=== PATIENT | female | born 1935 | race Caucasian/White ===

== ENCOUNTER → 2019-12-08 14:13 | Outpatient (REF) | payer MEDICARE, SELFPAY | LOC: ANHLAB 14:13 | PROVIDERS: Visit Provider Nurse Practitioner | DX: C44.319 Basal cell carcinoma of skin of other parts of face (principal) | CPT/HCPCS: 88305 ==

== ENCOUNTER → 2020-02-09 09:27 | Outpatient (REF) | payer MEDICARE, SELFPAY | LOC: ANHLAB 09:27 | PROVIDERS: Visit Provider Nurse Practitioner | DX: C44.319 Basal cell carcinoma of skin of other parts of face (principal) | CPT/HCPCS: 88305; 88331 ==

== ENCOUNTER 2020-04-07 07:40 | Outpatient (CLI) | payer MEDICARE, SELFPAY ==
[2020-04-07 07:52] LABS: Basophils Absolute Auto 0.07 K/mm3 (0.00-0.10); Eosinophils Percent Auto 1.4 % (1.0-6.0); Hematocrit 41.4 % (35.0-42.0); Hemoglobin 13.9 g/dL (11.7-13.8); Immature Granulocyte Absolute 0.02 K/mm3 (0.00-0.00); Immature Granulocyte Percent A 0.3 % (0.0-0.0); Lymphocytes Absolute Auto 2.75 K/mm3 (1.10-4.50); Lymphocytes Percent Auto 38.8 % (18.0-42.0); Mean Corpuscular HGB Conc 33.6 g/dL (32.0-36.0); Mean Corpuscular Hemoglobin 29.6 pg (27.0-31.0); Mean Corpuscular Volume 88.1 fL (78.0-102.0); Mean Platelet Volume 10.5 fl (9.2-11.8); Monocytes Absolute Auto 0.71 K/mm3 (0.10-0.90); Neutrophils Absolute Auto 3.4 K/mm3 (1.7-7.2); Neutrophils Percent Auto 48.5 % (50.0-70.0); Platelet Count Result 240 K/mm3 (150-420); Red Cell Distribution Width 12.7 % (11.6-14.4); White Blood Count 7.1 K/mm3 (4.8-10.8)
[2020-04-07 08:23] LABS: Alanine Aminotransferase 17 U/L (14-59); Albumin Level 4.1 g/dL (3.4-5.0); Alkaline Phosphatase 73 U/L (46-116); Anion Gap 11.8 mmol/L (7-16); Aspartate Amino Transferase 19 U/L (15-37); Bilirubin,Total 0.6 mg/dL (0.00-1.00); Blood Urea Nitrogen 18 mg/dL (7-18); Calcium 9.6 mg/dL (8.5-10.1); Carbon Dioxide 29 mmol/L (21-32); Chloride 104 mmol/L (98-108); Cholesterol 204 mg/dL (0-200); Estimated Glomerular Filt Rate 40; Glucose 106 mg/dL (70-99); HDL Direct 71 mg/dL (40-60); LDL Cholesterol Calculated 106 mg/dL (<130); Osmolality Calculated 293 mOsm/kg (285-295); Potassium 3.8 mmol/L (3.5-5.1); Sodium 141 mmol/L (136-145); Total Protein 7.3 g/dL (6.4-8.2); Triglycerides 136 mg/dL (0-150)
== END 2020-04-07 07:41 | disposition home or self-care (01) ==
PROVIDERS: PCP Nurse Practitioner Family; Visit Provider Nurse Practitioner Family
DX: E78.5 Hyperlipidemia, unspecified (principal); I10 Essential (primary) hypertension
CPT/HCPCS: 36415; 80053; 80061; 85025

== ENCOUNTER 2023-04-10 13:03 | Outpatient (NON) | payer MEDICARE, SELFPAY | END 2023-04-10 13:04 | disposition home or self-care (01) | PROVIDERS: PCP Nurse Practitioner Family; Visit Provider Nurse Practitioner | DX: C44.319 Basal cell carcinoma of skin of other parts of face (principal) | CPT/HCPCS: 88305 ==

== ENCOUNTER 2023-06-05 12:13 | Outpatient (CLI) | payer MEDICARE, SELFPAY ==
--- NOTE | ~2023-06-05 | XR_ITS ---
EXAMINATION: XR chest 2V Exam Date/Time: 06/05/2023 12:45 CDT HISTORY: FATIGUE,HTN,UPPER ABD DISCOMFORT Comparison: 10/02/2017. RESULT: Lines, tubes, and devices: Intact sternotomy wires. Mediastinal surgical clips. Likely coronary sten t. Lungs and pleura: Emphysematous/senescent change. Right hemidiaphragm eventration. Cardiomediastinal silhouette: Stable. Other: No acute osseous or upper abdominal finding. Scoliosis. IMPRESSION: No acute cardiopulmonary process. Reviewed, dictated and finalized at location K.
[2023-06-05 12:33] LABS: Basophils Absolute Auto 0.06 K/mm3 (0.00-0.10); Basophils Percent Auto 0.6 % (0.0-1.0); Eosinophils Absolute Auto 0.03 K/mm3 (0.02-0.50); Eosinophils Percent Auto 0.3 % (1.0-6.0); Hematocrit 40.7 % (35.0-42.0); Hemoglobin 14.1 g/dL (11.7-13.8); Immature Granulocyte Absolute 0.05 K/mm3 (0.00-0.00); Immature Granulocyte Percent A 0.5 % (0.0-0.0); Lymphocytes Absolute Auto 2.36 K/mm3 (1.10-4.50); Lymphocytes Percent Auto 25.1 % (18.0-42.0); Mean Corpuscular HGB Conc 34.6 g/dL (32.0-36.0); Mean Corpuscular Hemoglobin 29.4 pg (27.0-31.0); Mean Corpuscular Volume 84.8 fL (78.0-102.0); Mean Platelet Volume 9.8 fl (9.2-11.8); Monocytes Absolute Auto 0.82 K/mm3 (0.10-0.90); Monocytes Percent Auto 8.7 % (2.0-11.0); Neutrophils Absolute Auto 6.1 K/mm3 (1.7-7.2); Neutrophils Percent Auto 64.8 % (50.0-70.0); Platelet Count Result 366 K/mm3 (150-420); Red Cell Distribution Width 12.3 % (11.6-14.4); White Blood Count 9.4 K/mm3 (4.8-10.8)
--- NOTE | 2023-06-05 12:35 | ECG_ITS ---
Measurements Intervals [place] Rate: 67 P: 71 [place]: 156 QRS: -39 QRSD: 107 T: 44 QT: 433 QTc: 458 Interpretive Statements SINUS RHYTHM WITH SINUS ARRHYTHMIA LEFT AXIS DEVIATION ANTEROSEPTAL INFARCT, AGE INDETERMINATE BASELINE ARTIFACT- II, III, AVF ABNORMAL ECG NO PREVIOUS ECG AVAILABLE FOR COMPARISON Electronically Signed On 06-05-2023 14:10:27 CDT by Kev Dey D.O.
[2023-06-05 13:11] LABS: Alanine Aminotransferase 7 U/L (14-59); Albumin Level 3.9 g/dL (3.4-5.0); Alkaline Phosphatase 76 U/L (46-116); Anion Gap 12 mmol/L (8-16); Aspartate Amino Transferase 15 U/L (15-37); Bilirubin,Total 0.8 mg/dL (0.00-1.00); Blood Urea Nitrogen 28 mg/dL (7-18); Calcium 9.8 mg/dL (8.5-10.1); Carbon Dioxide 26 mmol/L (21-32); Chloride 99 mmol/L (98-108); Cholesterol 192 mg/dL (0-200); Estimated Glomerular Filt Rate 33; Glucose 124 mg/dL (70-99); HDL Direct 65 mg/dL (40-60); LDL Cholesterol Calculated 106 mg/dL (<130); Osmolality Calculated 290 mOsm/kg (285-295); Potassium 3.4 mmol/L (3.5-5.1); Sodium 137 mmol/L (136-145); Total Protein 7.3 g/dL (6.4-8.2); Triglycerides 105 mg/dL (0-150)
[2023-06-05 13:11] LABS: Troponin I 5.2 ng/L (0.00-60.4)
[2023-06-05 13:12] LABS: Thyroid Stimulating Hormone Reflex 3.24 u/IU/mL (0.36-3.74)
[2023-06-05 15:55] LABS: Hemoglobin A1C 5.9 % (<5.7)
[2023-06-07 21:00] LABS: H pylori, Urea Breath DETECTED (NOT DETECTED)
[2023-06-09 13:24] LABS: Vitamin D 25 Hydroxy 33 ng/mL (30-100)
== END 2023-06-05 12:14 | disposition home or self-care (01) ==
PROVIDERS: PCP Nurse Practitioner Family; Visit Provider Nurse Practitioner Family
DX: R94.31 Abnormal electrocardiogram [ECG] [EKG] (principal); I49.8 Other specified cardiac arrhythmias; I44.4 Left anterior fascicular block; R73.09 Other abnormal glucose; E66.9 Obesity, unspecified; I10 Essential (primary) hypertension; Z79.899 Other long term (current) drug therapy
CPT/HCPCS: 36415; 71046; 80053; 80061; 82306; 83013; 83036; 84443; 84484; 85025; 93005

== ENCOUNTER 2023-06-06 09:12 | Outpatient (CLI) | payer MEDICARE, SELFPAY ==
[2023-06-06 09:27] LABS: Appearance Urine Clear (Clear); Bilirubin Urine Negative (Negative); Blood Urine Trace-Intact (Negative); Color Urine Light Yellow (Yellow); Glucose Urine UA Negative (Negative); Ketones Urine Negative (Negative); Leukocyte Esterase Ur Trace LEU/UL (Negative); Nitrate Urine Negative (Negative); Protein Urine Negative (Negative); Urobilinogen Urine 0.2 mg/dL (0.2-1.0); pH Urine 5.5 (5.0-8.0)
[2023-06-06 09:34] LABS: Add Urine Microscopic? YES; Bacteria Urine Trace /hpf; RBC Urine None seen /hpf (0-2); Squamous Epithelial Cell Urine Occasional /hpf (Few); WBC Urine 0-3 /hpf (0-3)
[2023-06-06 16:57] LABS: Creatinine Urine 73.73 mg/dL (40-278); MALB Creatinine Ratio 17.6 mg/g (0-30); Microalbumin Urine Random < 13.0 mg/L
== END 2023-06-06 09:13 | disposition home or self-care (01) ==
LOC: CHSLAB 09:16
PROVIDERS: PCP Nurse Practitioner Family; Visit Provider Nurse Practitioner Family
DX: R94.4 Abnormal results of kidney function studies (principal); R39.9 Unspecified symptoms and signs involving the genitourinary system
CPT/HCPCS: 81001; 82043

== ENCOUNTER 2023-06-17 20:15 | Inpatient (IN) | payer MEDICARE, SELFPAY ==
--- NOTE | ~2023-06-17 | CT_ITS ---
Non-contrast CT scan of the Abdomen and Pelvis Clinical indication: Abdominal pain Technique: 2.5 mm axial scans were obtained through the abdomen and pelvis without intravenous or or al contrast. Dose reduction technique was used on this scan by utilizing automated exposure control a nd iterative reconstruction technique. The dose-length product (DLP) was 468.46 mGy-cm. Findings: Images through the lung bases reveal small hiatal hernia. There is no evidence of renal or ureteral calculi. The kidneys and the ureters are nondilated. The liver, spleen, pancreas, gallbladder, and adrenals appear normal. There are atherosclerotic calci fications of the aorta. There is no evidence of bowel obstruction. No evidence for appendicitis. Images through the pelvis were performed. There is no evidence of ascites or lymphadenopathy. Probabl e uterine fibroid. Urinary bladder unremarkable. Impression: Small hiatal hernia. Probable uterine fibroid. Reviewed, dictated and finalized at [facility]. Impression: Small hiatal hernia. Probable uterine fibroid.
[2023-06-17 20:16] VITALS: BP 127/59; PULSE 81; RESP 16; TEMP 36.8; O2SAT 97
--- NOTE | 2023-06-17 20:18 | ED.GENADULT ---
HPI - General Adult General Chief complaint: Abdominal Pain Stated complaint: Unspecified History of Present Illness HPI narrative: Patient is an 87-year-old female with history of CAD status post multi-vessel bypass, HTN, HLD, CVA here with multiple symptoms including belching, facial flushing and tingling in hands and feet. Patient has been having increased belching for several weeks and went to see a GI doctor on 06/12 due to positive H pylori. Patient was started on multiple medications including Flagyl, clarithromycin. These medications were started on 06/14. She has had continued belching, nausea and decreased appetite despite initiating these medications. She was feeling worse yesterday and then this morning she felt quite a bit better in terms of her GI symptoms. She had enough of an appetite to eat dinner tonight which included chicken noodle soup and pineapple. She states shortly after eating she began feeling tingling in her bilateral upper and lower extremities as well as facial flushing and jitteriness. She denies drinking any alcohol with dinner. Currently she states that she has continued increased belching, nausea as well as these new symptoms which persist to her visit here in the emergency department. Family note that she has had decreased p.o. intake for the last 3 or 4 days. Patient denies fever, chest pain, shortness of breath. No urinary symptoms. Related Data Allergies Allergy/AdvReac Type Severity Reaction Status Date / Time black walnut Allergy Intermediate unknown Verified 06/12/23 13:06 Review of Systems Review of Systems: CONSTITUTIONAL: Facial flushing. Denies fever, chills, or sweats. EYES: Denies visual changes, redness, or discharge. ENT: Denies rhinorrhea, congestion, sore throat, or otalgia. CARDIOVASCULAR: Denies chest pain, palpitations, or edema. RESPIRATORY: Denies cough or dyspnea. GASTROINTESTINAL: nausea, decreased appetite, no vomiting, or diarrhea. GENITOURINARY: Denies dysuria or hematuria. SKIN: Denies rash or itching. MUSCULOSKELETAL: Denies back pain, joint pain, or myalgia. NEUROLOGIC: Denies headache, numbness, or weakness. Tingling in bilateral hands and feet. PSYCHIATRIC: Denies anxiety or depression. [facility] Past Medical History Medical History (Updated 06/18/23 @ 06:42 by Carola Teran MD) Atherosclerotic heart disease Belching symptom Bilateral upper abdominal discomfort Cerebrovascular accident Family history of carcinoid tumor H. pylori infection History of basal cell carcinoma (BCC) Hyperlipidemia Hypertension Myocardial infarct, old Need for 23-polyvalent pneumococcal polysaccharide vaccine Poison zbigniew Skin cancer screening Skin neoplasm Weight loss Surgical History Surgical History History of cataract removal with insertion of prosthetic lens Family History Family History Mother Acute myocardial infarction Other Family history of coronary artery disease Social History Social History Smoking status: Never smoker Alcohol intake: never Substance use: never Substance use type: does not use Lack of Transportation: No Lack of Food: Never True Current Housing: I Have Housing Concerned About Future Housing: No Difficulty Paying Gas/Electric Bills: No Difficulty Paying for Meds: No Currently Unemployed: No Education: High School Diploma/GED Difficulty w/ Childcare or Family Care: No Living arrangements: alone Spiritual care concerns: No Exam Narrative: GENERAL: Well-appearing, well-nourished, tremulous HEAD: Normocephalic, atraumatic. Facial flushing present EYES: PERRLA and EOMI. ENT: Nares clear. Mucous membranes dry. NECK: Supple. CHEST: Clear to auscultation. No respiratory distress. HEART: Regular rate and rhythm. Normal peripheral pulses. ABDOMEN
--- NOTE | 2023-06-17 20:28 | ECG_ITS ---
Measurements Intervals [place] Rate: 69 P: 169 [place]: 174 QRS: -29 QRSD: 105 T: 0 QT: 416 QTc: 447 Interpretive Statements SINUS OR ECTOPIC ATRIAL RHYTHM INCOMPLETE RIGHT BUNDLE BRANCH BLOCK LEFT VENTRICULAR HYPERTROPHY AND ST-T CHANGE ANTEROSEPTAL INFARCT, AGE INDETERMINATE BORDERLINE T WAVE ABNORMALITY- ANTEROLATERAL LEADS BASELINE ARTIFACT- I, II, III, AVR, AVL, AVF, V1-V6 ABNORMAL ECG COMPARED TO ECG 06/05/2023 12:42:11 LEFT VENTRICULAR HYPERTROPHY NOW PRESENT ST (T WAVE) DEVIATION NOW PRESENT Electronically Signed On 06-18-2023 6:40:46 CDT by Kev Dey D.O.
[2023-06-17 20:36] LABS: Glucose Point of Care 158 mg/dl (65-105)
[2023-06-17] MEDS: SODIUM CHLORIDE 0.9% IV 1,000 ML 999 ML IV CONT (20:45)
[2023-06-17] MEDS: PANTOPRAZOLE SODIUM IV 40 MG VIAL IV PUSH (20:45)
[2023-06-17 20:48] LABS: Basophils Absolute Auto 0.08 K/mm3 (0.00-0.10); Basophils Percent Auto 0.9 % (0.0-1.0); Eosinophils Absolute Auto 0.12 K/mm3 (0.02-0.50); Eosinophils Percent Auto 1.3 % (1.0-6.0); Hematocrit 34.8 % (35.0-42.0); Hemoglobin 12.2 g/dL (11.7-13.8); Immature Granulocyte Absolute 0.03 K/mm3 (0.00-0.00); Immature Granulocyte Percent A 0.3 % (0.0-0.0); Lymphocytes Absolute Auto 3.14 K/mm3 (1.10-4.50); Lymphocytes Percent Auto 33.8 % (18.0-42.0); Mean Corpuscular HGB Conc 35.1 g/dL (32.0-36.0); Mean Corpuscular Hemoglobin 29.3 pg (27.0-31.0); Mean Corpuscular Volume 83.5 fL (78.0-102.0); Mean Platelet Volume 10.5 fl (9.2-11.8); Monocytes Absolute Auto 1.08 K/mm3 (0.10-0.90); Monocytes Percent Auto 11.6 % (2.0-11.0); Neutrophils Absolute Auto 4.9 K/mm3 (1.7-7.2); Neutrophils Percent Auto 52.1 % (50.0-70.0); Platelet Count Result 215 K/mm3 (150-420); Red Blood Count 4.17 M/mm3 (4.20-5.40); White Blood Count 9.3 K/mm3 (4.8-10.8)
[2023-06-17 21:07] LABS: Alanine Aminotransferase 15 U/L (14-59); Albumin Level 3.6 g/dL (3.4-5.0); Alkaline Phosphatase 68 U/L (46-116); Anion Gap 17 mmol/L (8-16); Aspartate Amino Transferase 26 U/L (15-37); Bilirubin,Total 0.8 mg/dL (0.00-1.00); Blood Urea Nitrogen 24 mg/dL (7-18); Calcium 8.9 mg/dL (8.5-10.1); Carbon Dioxide 21 mmol/L (21-32); Chloride 96 mmol/L (98-108); Estimated CRCL calculation 17 ml/min; Estimated Glomerular Filt Rate 25; Glucose 160 mg/dL (70-99); Lactic Acid Reflex 2.2 mmol/L (0.4-2.0); Lipase 96 U/L (16-77); Osmolality Calculated 285 mOsm/kg (285-295); Sodium 134 mmol/L (136-145); Total Protein 6.7 g/dL (6.4-8.2); Troponin I 9.3 ng/L (0.00-60.4)
[2023-06-17 21:10] LABS: Potassium 2.5 mmol/L (3.5-5.1)
[2023-06-17] MEDS: ONDANSETRON INJ 4 MG/2 ML VIAL IV PUSH (21:20)
[2023-06-17] MEDS: POTASSIUM BICARBONATE 25 MEQ TABEF 50 MEQ PO (21:20)
[2023-06-17 21:43] VITALS: BP 122/60; PULSE 68; RESP 16; O2SAT 96
[2023-06-17 22:26] LABS: Reflex Lactic Acid Yes or No Add Lactic
[2023-06-17 22:35] VITALS: BP 118/60; PULSE 70; RESP 18; O2SAT 95
[2023-06-17 22:37] LABS: Anion Gap 14 mmol/L (8-16); Blood Urea Nitrogen 23 mg/dL (7-18); Calcium 8.5 mg/dL (8.5-10.1); Carbon Dioxide 22 mmol/L (21-32); Chloride 98 mmol/L (98-108); Estimated CRCL calculation 18 ml/min; Estimated Glomerular Filt Rate 27; Glucose 141 mg/dL (70-99); Osmolality Calculated 283 mOsm/kg (285-295); Potassium 2.8 mmol/L (3.5-5.1); Sodium 134 mmol/L (136-145)
[2023-06-17 22:45] LABS: Lactic Acid 1.5 mmol/L (0.4-2.0)
[2023-06-17 22:55] VITALS: PULSE 72; RESP 16; O2SAT 96
[2023-06-17 23:20] VITALS: BP 120/70; PULSE 72; RESP 20; TEMP 36.6; O2SAT 96
[2023-06-17] MEDS: KCL 40 MEQ/0.9% SOD CHL 1,000 ML 100 ML IV CONT (23:34)
--- NOTE | 2023-06-17 23:35 | ADMGEN ---
This patient, Niya Evans, was admitted to 2nd Floor Room 205-2. Patient oriented to hospital policies and general routines including ID bracelet, bed and alarms, visiting hours, pain management, procedures, bathroom and other care routines, personal items, smoking policy, room service/diet, and visiting hours. Information on how to activate the Rapid Response Team has been discussed. Patient are encouraged to report perceived risks to care and to ask questions if they do not understand what they are told or what they should do.
--- NOTE | 2023-06-17 23:45 | PC.NURSE ---
Patient has placed observation on the second floor, due to dehydration, CHARLEE, and hypokalemia. Patient's MAR ordered KCl 40 Meq/0.9% Sod. Chl 1000 mL @ 100 mL/hr. Vitals were ordered Q4, but telemetry was not included in the order. Charge called the ED nurse's station, to inquire about telemetry, and was notified that the ED doctor was sleeping. Therefore, nursing judgement was used and telemetry was placed for the duration of the KCl infusion.
[2023-06-17] MEDS: MELATONIN 3 MG TABLET PO (23:50)
[2023-06-18] VITALS (7 sets, daily range): BP systolic 91–122; BP diastolic 47–58; PULSE 68–97; RESP 14–18; TEMP 36–36.8; O2SAT 93–97; BMI 28.8
--- NOTE | 2023-06-18 04:08 | PC.NURSE ---
On 06/18/23, the [employer], Keke Eli, provided care and completed [facility] documentation on this patient. I have reviewed the [employer]'s documentation and agree with the findings.
[2023-06-18 05:14] LABS: Basophils Absolute Auto 0.07 K/mm3 (0.00-0.10); Basophils Percent Auto 0.7 % (0.0-1.0); Eosinophils Absolute Auto 0.14 K/mm3 (0.02-0.50); Eosinophils Percent Auto 1.4 % (1.0-6.0); Hematocrit 31.6 % (35.0-42.0); Hemoglobin 11.1 g/dL (11.7-13.8); Immature Granulocyte Absolute 0.04 K/mm3 (0.00-0.00); Immature Granulocyte Percent A 0.4 % (0.0-0.0); Lymphocytes Absolute Auto 2.97 K/mm3 (1.10-4.50); Lymphocytes Percent Auto 30.2 % (18.0-42.0); Mean Corpuscular HGB Conc 35.1 g/dL (32.0-36.0); Mean Corpuscular Hemoglobin 29.8 pg (27.0-31.0); Mean Corpuscular Volume 84.7 fL (78.0-102.0); Monocytes Absolute Auto 1.03 K/mm3 (0.10-0.90); Monocytes Percent Auto 10.5 % (2.0-11.0); Neutrophils Absolute Auto 5.6 K/mm3 (1.7-7.2); Neutrophils Percent Auto 56.8 % (50.0-70.0); Platelet Count Result 178 K/mm3 (150-420); Red Blood Count 3.73 M/mm3 (4.20-5.40); Red Cell Distribution Width 13.2 % (11.6-14.4); White Blood Count 9.8 K/mm3 (4.8-10.8)
[2023-06-18 05:26] LABS: Bilirubin Urine Negative (Negative); Blood Urine Negative (Negative); Color Urine Light Yellow (Yellow); Glucose Urine UA Negative (Negative); Ketones Urine Negative (Negative); Leukocyte Esterase Ur 2+ LEU/UL (Negative); Nitrate Urine Negative (Negative); Protein Urine Negative (Negative); Urobilinogen Urine 0.2 mg/dL (0.2-1.0)
[2023-06-18 05:27] LABS: Anion Gap 10 mmol/L (8-16); Blood Urea Nitrogen 19 mg/dL (7-18); Calcium 8.3 mg/dL (8.5-10.1); Carbon Dioxide 25 mmol/L (21-32); Chloride 100 mmol/L (98-108); Estimated CRCL calculation 21 ml/min; Estimated Glomerular Filt Rate 31; Glucose 119 mg/dL (70-99); Osmolality Calculated 283 mOsm/kg (285-295); Potassium 3.1 mmol/L (3.5-5.1); Sodium 135 mmol/L (136-145)
[2023-06-18 05:37] LABS: Add Urine Microscopic? YES; Amorphous Sediment Urine Few; Appearance Urine Slightly Cloudy (Clear); Renal Epithelial Cells Urine Moderate /hpf; Squamous Epithelial Cell Urine Moderate /hpf (Few); WBC Clumps Urine Present /hpf; WBC Urine 21-30 /hpf (0-3)
[2023-06-18 05:38] LABS: Bacteria Urine 1+ /hpf
[2023-06-18] MEDS: CLARITHROMYCIN 500 MG TABLET PO ×2 (07:45→17:59)
[2023-06-18] MEDS: FAMOTIDINE 20 MG/2 ML VIAL IV PUSH ×2 (09:07→20:40)
[2023-06-18] MEDS: ASPIRIN 81 MG ENTERIC TABLET PO (09:07)
[2023-06-18] MEDS: PANTOPRAZOLE 40 MG TABLET PO ×2 (09:07→20:39)
[2023-06-18] MEDS: MULTIVITAMINS THERAPEUTIC TAB (*BKC) 1 TABLET PO (09:07)
[2023-06-18] MEDS: LOVASTATIN 20 MG TABLET BY MOUTH (09:08)
--- NOTE | 2023-06-18 13:02 | PM.IMHP ---
H&P: HPI History of Present Illness Date/Time: 06/18/23 13:02 Chief Complaint: belching, shakiness and tingling all over, decreased appetite Narrative: This is an 87-year-old female patient with a past history of hypertension coronary artery disease status post double bypass surgery, hyperlipidemia, atherosclerosis who is admitted to the hospital after ER workup showed acute kidney injury and profound hypokalemia. Patient has been experiencing symptoms of increased belching and decreased appetite as result ongoing for the last 3 weeks. She has been evaluated by primary care who referred her to Gastroenterology. Patient tested positive by breath test for H pylori. She was initiated on treatment with clarithromycin, pantoprazole and Flagyl. It is felt that patient had a disulfiram like reaction to Flagyl after she became flushed in the face and nauseous after eating dinner yesterday. Patient was found to have significant CHARLEE profound hypokalemia. She received IV fluids in the emergency department as well as potassium replacement. Patient was admitted to the medical floor for observation and re-evaluation. Patient reports that she has been feeling shaky weak and not 100% recently. Patient states that she only feels about 40% capacity. 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 Patient lives independently. The past few weeks patient has not feeling herself and has been dealing with GI issues. Patient states that she is afraid to eat because of the symptoms she is experiencing. She is scheduled for EGD at the end of July by Dr. Hampton at [facility]. Review of Systems Review of Systems: All systems reviewed & are unremarkable except as noted in HPI and below PMFSH Past Medical History Medical History Atherosclerotic heart disease Belching symptom Bilateral upper abdominal discomfort Cerebrovascular accident Family history of carcinoid tumor H. pylori infection History of basal cell carcinoma (BCC) Hyperlipidemia Hypertension Myocardial infarct, old Need for 23-polyvalent pneumococcal polysaccharide vaccine Poison zbigniew Skin cancer screening Skin neoplasm Weight loss Surgical History Surgical History History of cataract removal with insertion of prosthetic lens Family History Family History Mother Acute myocardial infarction Other Family history of coronary artery disease Social History Social History Smoking status: Never smoker Alcohol intake: never Substance use: never Substance use type: does not use Lack of Transportation: No Lack of Food: Never True Current Housing: I Have Housing Concerned About Future Housing: No Difficulty Paying Gas/Electric Bills: No Difficulty Paying for Meds: No Currently Unemployed: No Education: High School Diploma/GED Difficulty w/ Childcare or Family Care: No Living arrangements: alone Spiritual care concerns: No Meds Home Medications and Allergies Home Medications Medication Instructions Recorded Confirmed Type aspirin 81 mg tablet,delayed 81 mg PO DAILY #90 tabs 04/05/20 06/17/23 Rx release multivitamin 1 cap PO DAILY #90 caps 04/05/20 06/17/23 Rx amlodipine 10 mg tablet See Rx Instructions .Route 02/19/23 06/17/23 Rx .COMPLEX #90 tabs losartan 50 mg-hydrochlorothiazide See Rx Instructions .Route 03/27/23 06/17/23 Rx 12.5 mg tablet .COMPLEX #90 tabs lovastatin 20 mg tablet See Rx Instructions .Route 04/12/23 06/17/23 Rx .COMPLEX #90 tabs metoprolol tartrate 50 mg tablet See Rx Instructions .Route 04/12/23 06/17/23 Rx .COMPLEX #180 tabs pantoprazole 40 mg tablet,delayed 40 mg PO QAM 8 weeks #56 tabs 06/06/23 06/17/23 Rx release
--- NOTE | 2023-06-18 13:13 | PC.NURSE ---
Telemetry was DC'D when K+ infusion was completed. Pt had sinus rhythm with pulse of 70 to 78 during the infusion. No chest pain or SOB noted.
[2023-06-18] MEDS: cefTRIAXone 2 GM/NS 100 ML 2 GM/100 ML BAG IVPB (13:18)
[2023-06-18 17:03] LABS: Anion Gap 9 mmol/L (8-16); Blood Urea Nitrogen 16 mg/dL (7-18); Calcium 8.2 mg/dL (8.5-10.1); Carbon Dioxide 25 mmol/L (21-32); Chloride 101 mmol/L (98-108); Estimated CRCL calculation 22 ml/min; Estimated Glomerular Filt Rate 33; Glucose 165 mg/dL (70-99); Magnesium 1.2 mg/dL (1.8-2.4); Osmolality Calculated 285 mOsm/kg (285-295); Potassium 3.3 mmol/L (3.5-5.1); Sodium 135 mmol/L (136-145)
[2023-06-18] MEDS: SIMETHICONE 80 MG TAB.CHEW PO ×2 (17:59→20:39)
[2023-06-18 18:34] LABS: Glucose Point of Care 133 mg/dl (65-105)
--- NOTE | 2023-06-18 18:37 | PC.NURSE ---
Patients daughter noted patient to appear to be having more shakiness/tremors. This nurse and Nurse Radha RN assessed patient. Vital signs stable per flow charts. Lung sounds clear, Blood sugar stable per labs, Neuro checks stable. Fan provided for patient per request due to feeling flushed. This nurse spoke with POLYSOMNOGRAPH TECH Jose Manuel about patient and daughters concerns. N.O. received.
[2023-06-18] MEDS: POTASSIUM CHLORIDE 20 MEQ ER TABLET 40 MEQ PO (19:05)
[2023-06-18] MEDS: MAGNESIUM SULF 2 GM/WATER 50ML 2 GM/50 ML BAG IVPB (19:05)
[2023-06-18] MEDS: traZODone HCL 50 MG TABLET PO (20:39)
[2023-06-18] MEDS: ENOXAPARIN 30 MG/0.3 ML SYRINGE SUB-Q (20:39)
[2023-06-19] VITALS: BP 130/60; PULSE 108; RESP 18; TEMP 36.4; O2SAT 91
[2023-06-19 04:00] VITALS: BP 122/58; PULSE 89; RESP 16; TEMP 36.2; O2SAT 91
[2023-06-19 05:30] LABS: Hematocrit 32.3 % (35.0-42.0); Hemoglobin 11.2 g/dL (11.7-13.8); Mean Corpuscular HGB Conc 34.7 g/dL (32.0-36.0); Mean Corpuscular Hemoglobin 29.4 pg (27.0-31.0); Mean Corpuscular Volume 84.8 fL (78.0-102.0); Mean Platelet Volume 10.3 fl (9.2-11.8); Platelet Count Result 180 K/mm3 (150-420); Red Blood Count 3.81 M/mm3 (4.20-5.40); Red Cell Distribution Width 13.4 % (11.6-14.4); White Blood Count 11.3 K/mm3 (4.8-10.8)
[2023-06-19 05:41] LABS: Anion Gap 10 mmol/L (8-16); Blood Urea Nitrogen 12 mg/dL (7-18); Calcium 8.9 mg/dL (8.5-10.1); Carbon Dioxide 24 mmol/L (21-32); Chloride 103 mmol/L (98-108); Estimated CRCL calculation 29 ml/min; Estimated Glomerular Filt Rate 46; Glucose 124 mg/dL (70-99); Lipase 48 U/L (16-77); Magnesium 1.8 mg/dL (1.8-2.4); Osmolality Calculated 284 mOsm/kg (285-295); Potassium 3.9 mmol/L (3.5-5.1); Sodium 137 mmol/L (136-145)
[2023-06-19 05:45] LABS: Hemoglobin A1C 6.1 % (<5.7)
--- NOTE | 2023-06-19 06:10 | PC.NURSE ---
Fady Rosa NP called in to get an update on pt's condition and labs. Report given and no new orders at this time.
--- NOTE | 2023-06-19 06:25 | PC.NURSE ---
Patient woke up at 0130 complaining of hallucinations. She was unable to explain what she was seeing, other than something to do with the metal track around the bed whirling. Patient was anxious, and asked to use the toilet. After toileting, patient was settled in bed, and lights were changed so that she had more light on in the room. Slow breathes and relaxation of arms, legs was used to help patient relax. She was then able to go back to sleep, and slept until 0530. Patient awoke then, and again asked to use the toilet. She did not have any other hallucinations. Patient thought it could have been due to her UTI.
[2023-06-19] MEDS: CLARITHROMYCIN 500 MG TABLET PO (06:59)
[2023-06-19 08:00] VITALS: BP 107/56; PULSE 110; RESP 14; TEMP 36.4; O2SAT 97
[2023-06-19] MEDS: MULTIVITAMINS THERAPEUTIC TAB (*BKC) 1 TABLET PO (08:32)
[2023-06-19] MEDS: SIMETHICONE 80 MG TAB.CHEW PO ×2 (08:32→12:56)
[2023-06-19] MEDS: PANTOPRAZOLE 40 MG TABLET PO (08:32)
[2023-06-19] MEDS: FAMOTIDINE 20 MG/2 ML VIAL IV PUSH (08:32)
[2023-06-19] MEDS: LOVASTATIN 20 MG TABLET BY MOUTH (08:32)
[2023-06-19] MEDS: ASPIRIN 81 MG ENTERIC TABLET PO (08:33)
[2023-06-19] MEDS: cefTRIAXone 2 GM/NS 100 ML 2 GM/100 ML BAG IVPB (12:49)
--- NOTE | 2023-06-19 15:35 | PM.DS ---
DS: Admitting Diagnosis Discharge Date 06/19/2023 Admitting Diagnosis CHARLEE, acute hypokalemia, decreased appetite, acute dehydration, belching symptom, H pylori infection, hypertension DS: Discharge Diagnosis Discharge Diagnosis (1) CHARLEE (acute kidney injury): Code(s): N17.9 - Acute kidney failure, unspecified Status: Acute Assessment and Plan: Returned to baseline (2) Acute hypokalemia: Code(s): E87.6 - Hypokalemia Status: Acute Assessment and Plan: Returned to normal (3) Decreased appetite: Code(s): R63.0 - Anorexia Status: Acute Assessment and Plan: Full diet and decreased gas on day of discharge. (4) Acute dehydration: Code(s): E86.0 - Dehydration Status: Acute Assessment and Plan: Improved (5) Belching symptom: Code(s): R14.2 - Eructation Status: Acute Assessment and Plan: Improved (6) H. pylori infection: Code(s): A04.8 - Other specified bacterial intestinal infections Status: Acute Assessment and Plan: continue clarithromycin, continue pantoprazole twice daily, discontinue metronidazole, ceftriaxone while hospitalized but will send home on amoxicillin. (7) Hypertension: Code(s): I10 - Essential (primary) hypertension Status: Chronic Assessment and Plan: Blood pressure reviewed on 06/19, still borderline low/normal. Restart metoprolol due to mild tachycardia (off metoprolol for 2 days), stop amlodipine and lisinopril/HCTZ due to CHARLEE and soft BP (8) Hypomagnesemia: Code(s): E83.42 - Hypomagnesemia Status: Acute Assessment and Plan: improved after replacement (9) Weight loss: Code(s): R63.4 - Abnormal weight loss Status: Acute Plan Recommend outpatient PT/OT, offered swing bed or home therapy but patient wanted to come to the outpatient clinic instead. PCP to write orders. Hgb A1c 6.1, patient informed and PCP to follow up with this. replace metronidazole with amoxicillin which will treat UTI and H. pylori Stop amlodipine and lisinopril/HCTZ for now, PCP to reevaluate if these need restarted. Restart metoprolol due to tachycardia from abrupt withdrawal DS: Summary Hospital Course Reason for hospitalization: Patient found to be dehydrated with CHARLEE and profound hypokalemia due to GI symptoms leading to anorexia Hospital Course: Patient was admitted after finding CHARLEE hypokalemia and hypo magnesemia due to dehydration and anorexia related to belching symptoms from H pylori infection. Patient felt to be experiencing disulfiram like reaction from metronidazole. This was discontinued. Patient received IV site of trach sewn while hospitalized. Urinalysis appeared infected though patient had minimal UTI symptoms. Electrolytes were replaced and stabilized. Patient had tremors that since stabilized. Suspect these were related to electrolyte disturbance. On day of discharge patient's heart rate is mildly elevated but believe this is due to abrupt withdrawal from beta alexandre as her metoprolol has been held for the last 2 days. With plan to monitor for urine culture and add or change antibiotic treatment if resistance is identified. Otherwise, patient placed on high-dose amoxicillin for H pylori and UTI. Minor dose adjustment made to 875 b.i.d. due to CHARLEE. Status at Discharge Cognitive/behavioral status at discharge: Awake alert oriented and very pleasant Functional status at discharge: independent ambulation Overall status at discharge: patient is progressing back to baseline Time Spent with Patient Time attestation: Total time spent providing and/or coordinating discharge services: 40 Time spent: Greater than 30 minutes Exam Narrative: GENERAL: Generally well appearing, alert and oriented, in no apparent distress. She is pleasant and conversant in full sentences. Generalized fine tremors noted that improve or cease when patient focuses on in
[2023-06-19 15:40] VITALS: BP 112/66; PULSE 100; RESP 16; TEMP 35.6; O2SAT 95
[2023-06-19 15:55] VITALS: PULSE 100
[2023-06-19] MEDS: METOPROLOL TARTRATE 50 MG TAB PO (15:55)
--- NOTE | 2023-06-19 16:20 | PC.NURSE ---
Patient discharging home. All discharge instructions and education reviewed with patient and daughter. Both parties state understanding. IV site removed, tip intact. Dressing applied to site. All belongings gathered together and sent home with patient. Patient transported home via daughter. Denies any questions or concerns at discharge.
--- NOTE | 2023-06-20 15:39 | PC.NURSE ---
Discharge call back. Spoke to patient. Patient states the discharging nurse explained discharge orders and answered questions. Pateint states she did not have any questions at this time. Nurse explained to call whenever she has a question.
== END 2023-06-19 16:20 | disposition home or self-care (01) | DRG 683 ==
LOC: CHSED 22:51 → CHS2ND 23:03
PROVIDERS: Nurse Practitioner; Admitting Provider Nurse Practitioner Acute Care; Emergency Provider Student in an Organized Health Care Education/Training Program; PCP Nurse Practitioner Family; Visit Provider Internal Medicine
DX: N17.9 Acute kidney failure, unspecified (principal); A04.8 Other specified bacterial intestinal infections; N39.0 Urinary tract infection, site not specified; E87.6 Hypokalemia; E86.0 Dehydration; E83.42 Hypomagnesemia; I10 Essential (primary) hypertension; R14.2 Eructation; R63.0 Anorexia; R63.4 Abnormal weight loss
CPT/HCPCS: 36415; 74176; 80048; 80053; 81001; 82948; 83036; 83605; 83690; 83735; 84484; 85025; 85027; 87086; 93005; 96361; 96365; 96366; 96374; 96375; 97110; 97161; 97165; 97530; 97535; 99285; A9270; C9113; G0378; J0696; J1650; J2405; J3475; J7030

== ENCOUNTER 2023-06-26 12:47 | Outpatient (RCR) | payer MEDICARE, SELFPAY ==
--- NOTE | 2023-07-02 07:52 | BUOTOPEVAL ---
Assessment and note entered by [place], OT Evaluation Information Assessment Status Evaluation Diagnosis Weakness Onset 1 month Subjective Information The patient reports no pain at this time. The patient stated she does not think she will need much therapy. The patient stated that she can normally work at home for 15 to 20 minutes prior to needing a rest break. Reported Pain Level Pain Score 0: Self Report Assessment OT Clinical Summary The patient is an 87 year old female who was referred to outpatient OT due to UE weakness and low endurance following hospitalization. 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 The patient now demonstrates moderately impaired endurance and 4-4+/5 muscle strength of B UE. The patient requires skilled OT to address these deficits and return to PLOF. Plan of Care Interventions Therapeutic Exercise,Manual Therapy,Neuro Re- education,Therapeutic Activities,Hot Pack/Cold Pack,Self-Care/Home Management OT Services Indicated Yes Treatment Frequency and 2x/week for 10 visits. Duration These treatments will address the objective and functional deficits as defined above. The patient will be advanced safely and appropriately in order for the patient to progress towards his/her prior level of function. Additional exercises will be introduced and as well as a comprehensive home exercise program upon discharge, if needed, ?to ensure carryover of functional gains achieved in the clinic. This treatment plan has been reviewed and agreement upon by the patient.
== END 2023-07-02 20:00 | disposition home or self-care (01) ==
LOC: CHSOT 12:47
PROVIDERS: PCP Nurse Practitioner Family; Visit Provider Nurse Practitioner Family
DX: R53.1 Weakness (principal)
CPT/HCPCS: 97110; 97165; 97530

== ENCOUNTER 2023-07-24 00:46 | Day surgery (SDC) | payer MEDICARE, SELFPAY ==
[2023-06-19 13:00] VITALS: BMI 28.5
[2023-07-12 12:39] VITALS: BMI 28.5
[2023-07-24 08:32] VITALS: BP 166/110; PULSE 86; RESP 20; TEMP 36.7; O2SAT 97
--- NOTE | 2023-07-24 08:45 | WPDANESEPPF ---
Anes - Initial Pre Proc Eval Procedure: Operation Date: 07/24/23 10:00 Proposed Procedures p Esophagogastroduodenoscopy - Akira Carlisle MD Date/Time: 07/24/23 08:45 Surgeon: Akira Carlisle MD Pre Op Diagnosis: Other specified bacterial intestinal infections Patient Data Age: 87 Gender: F Height: 1.55 m Weight: 68.7 kg Last Vital Signs Temp 98.1 F 07/24/23 08:32 Pulse 86 07/24/23 08:32 Resp 20 07/24/23 08:32 BP 166/110 H 07/24/23 08:32 Pulse Ox 97 07/24/23 08:32 O2 Del Method Room Air 07/24/23 08:32 Allergies Allergy/AdvReac Type Severity Reaction Status Date / Time black walnut Allergy Intermediate unknown Verified 07/24/23 08:30 metronidazole Allergy Jittery Verified 07/24/23 08:30 Home Medications Medication Instructions Recorded Confirmed Type aspirin 81 mg tablet,delayed 81 mg PO DAILY #90 tabs 04/05/20 07/24/23 Rx release multivitamin 1 cap PO DAILY #90 caps 04/05/20 07/24/23 Rx lovastatin 20 mg tablet See Rx Instructions .Route 04/12/23 07/24/23 Rx .COMPLEX #90 tabs metoprolol tartrate 50 mg tablet See Rx Instructions .Route 04/12/23 07/24/23 Rx .COMPLEX #180 tabs pantoprazole 40 mg tablet,delayed 40 mg PO QAM 8 weeks #56 tabs 06/06/23 07/24/23 Rx release ondansetron HCl 4 mg tablet 4 mg PO Q8H PRN nausea and 06/12/23 07/24/23 Rx vomiting #30 tabs acetaminophen 325 mg tablet (Mapap 650 mg PO Q4H PRN Mild Pain (1-3) 06/19/23 07/24/23 Rx (acetaminophen)) Or Fever #0 tabs simethicone 80 mg chewable tablet 80 mg PO QID #40 tabs 06/19/23 07/24/23 Rx Patient hx anesthesia problems: none Family hx anesthesia problems: none Results Review: All pre-operative results and documents have been reviewed as part of the pre-operative evaluation. [facility] Past Medical History Medical History Atherosclerotic heart disease Belching symptom Bilateral upper abdominal discomfort Cerebrovascular accident Family history of carcinoid tumor H. pylori infection History of basal cell carcinoma (BCC) Hyperlipidemia Hypertension Myocardial infarct, old Need for 23-polyvalent pneumococcal polysaccharide vaccine Poison zbigniew Skin cancer screening Skin neoplasm Weight loss Surgical History Surgical History History of cataract removal with insertion of prosthetic lens Family History Family History Mother Acute myocardial infarction Other Family history of coronary artery disease Social History Social History Smoking status: Never smoker Alcohol intake: never Substance use: never Substance use type: does not use Lack of Transportation: No Lack of Food: Never True Current Housing: I Have Housing Concerned About Future Housing: No Difficulty Paying Gas/Electric Bills: No Difficulty Paying for Meds: No Currently Unemployed: No Education: High School Diploma/GED Difficulty w/ Childcare or Family Care: No Living arrangements: alone Spiritual care concerns: No Anes - Eval Final PreProcedure Day of Procedure 07/24/23 08:45 Patient weight: normal Heart: regular rate and rhythm Lungs: clear to auscultation Airway: Mallampati scale class II Neurological: alert and oriented Last oral intake: >/= 8 hours ASA classification: III Emergent: no Anesthetic plan: proceed Anesthesia type and monitoring: general GIVS and standard monitoring Results Review: All pre-operative results and documents have been reviewed as part of the pre-operative evaluation. Informed Consent: The patient's anesthetic plan and its attendant risks and benefits were discussed with the patient/family/POA. Questions were solicited and answers provided to the satisfaction of the patient/family/POA.
[2023-07-24] MEDS: LACTATED RINGERS 1,000 ML 150 ML IV CONT (08:46)
--- NOTE | 2023-07-24 09:00 | PM.HPGS ---
History of Present Illness History of Present Illness Consent: Risks, benefits, and alternatives have been discussed and questions answered. Patient agrees to proceed with procedure. Chief complaint: Other specified bacterial intestinal infections Narrative: Niya Evans is a 87 year old female with dyspepsia and belching, H pylori breathing test positive and treated, now asymptomatic, never had EGD. Review of Systems Constitutional: Constitutional: Denies headache(s) and Denies weakness Eyes: Eyes: Denies blurry vision ENT: Reports Normal hearing present, Denies headache(s) and Denies neck pain Cardiovascular: Cardiovascular: Denies chest pain and Denies dyspnea Respiratory: Respiratory: Denies dyspnea Gastrointestinal: Gastrointestinal: Reports no additional gastrointestinal complaints Genitourinary: Genitourinary: Denies dysuria Musculoskeletal: Musculoskeletal: Denies neck pain Integumentary/Breasts: Skin/Breast: Denies dry skin Neurologic: Reports Normal hearing present, Denies headache(s) and Denies weakness Psychiatric: Psychiatric: Denies anxiety Endocrine: Endocrine: Denies change in body appearance Hematologic/Lymphatic: Hematologic/Lymphatic: Denies easy bleeding Allergic/Immunologic: Allergic/Immunologic: Denies urticaria PMFSH Past Medical History Medical History Atherosclerotic heart disease Belching symptom Bilateral upper abdominal discomfort Cerebrovascular accident Family history of carcinoid tumor H. pylori infection History of basal cell carcinoma (BCC) Hyperlipidemia Hypertension Myocardial infarct, old Need for 23-polyvalent pneumococcal polysaccharide vaccine Poison zbigniew Skin cancer screening Skin neoplasm Weight loss Surgical History Surgical History History of cataract removal with insertion of prosthetic lens Family History Family History Mother Acute myocardial infarction Other Family history of coronary artery disease Social History Social History Smoking status: Never smoker Alcohol intake: never Substance use: never Substance use type: does not use Lack of Transportation: No Lack of Food: Never True Current Housing: I Have Housing Concerned About Future Housing: No Difficulty Paying Gas/Electric Bills: No Difficulty Paying for Meds: No Currently Unemployed: No Education: High School Diploma/GED Difficulty w/ Childcare or Family Care: No Living arrangements: alone Spiritual care concerns: No Meds Home Medications and Allergies Home Medications Medication Instructions Recorded Confirmed Type aspirin 81 mg tablet,delayed 81 mg PO DAILY #90 tabs 04/05/20 07/24/23 Rx release multivitamin 1 cap PO DAILY #90 caps 04/05/20 07/24/23 Rx lovastatin 20 mg tablet See Rx Instructions .Route 04/12/23 07/24/23 Rx .COMPLEX #90 tabs metoprolol tartrate 50 mg tablet See Rx Instructions .Route 04/12/23 07/24/23 Rx .COMPLEX #180 tabs pantoprazole 40 mg tablet,delayed 40 mg PO QAM 8 weeks #56 tabs 06/06/23 07/24/23 Rx release ondansetron HCl 4 mg tablet 4 mg PO Q8H PRN nausea and 06/12/23 07/24/23 Rx vomiting #30 tabs acetaminophen 325 mg tablet (Mapap 650 mg PO Q4H PRN Mild Pain (1-3) 06/19/23 07/24/23 Rx (acetaminophen)) Or Fever #0 tabs simethicone 80 mg chewable tablet 80 mg PO QID #40 tabs 06/19/23 07/24/23 Rx Allergies Allergy/AdvReac Type Severity Reaction Status Date / Time black walnut Allergy Intermediate unknown Verified 07/24/23 08:30 metronidazole Allergy Jittery Verified 07/24/23 08:30 Vital Signs Vital Signs - 24 hr 07/24/23 08:32 Temperature 98.1 F Pulse Rate 86 Respiratory Rate 20 Blood Pressure 166/110 H Pulse Oximetry 97 Oxygen Delivery Room Air
[2023-07-24 09:17] VITALS: BP 148/68; PULSE 58; RESP 22; O2SAT 97
[2023-07-24 09:27] VITALS: BP 160/80; PULSE 66; RESP 16; O2SAT 94
[2023-07-24 09:37] VITALS: BP 171/79; PULSE 63; RESP 23; O2SAT 98
== END 2023-07-24 09:46 | disposition home or self-care (01) ==
PROVIDERS: PCP Nurse Practitioner Family; Visit Provider Internal Medicine Gastroenterology
PROC: 0DJ08ZZ Inspection of Upper Intestinal Tract, Via Natural or Artificial Opening Endoscopic (ICD-10-PCS; CPT 43235; principal; 2023-07-24 10:00)
DX: K29.50 Unspecified chronic gastritis without bleeding (principal); K44.9 Diaphragmatic hernia without obstruction or gangrene; Z87.19 Personal history of other diseases of the digestive system; I25.10 Atherosclerotic heart disease of native coronary artery without angina pectoris; I10 Essential (primary) hypertension; E78.5 Hyperlipidemia, unspecified; I25.2 Old myocardial infarction; Z79.82 Long term (current) use of aspirin
CPT/HCPCS: 43239; 88305; 88342; J2704; J7120

== ENCOUNTER 2023-12-11 11:36 | Emergency (ER) | payer MEDICARE, SELFPAY ==
[2023-12-11] VITALS (40 sets, daily range): BP systolic 122–200; BP diastolic 54–101; PULSE 58–87; RESP 7–21; TEMP 36.7; O2SAT 92–99
--- NOTE | ~2023-12-11 | XR_ITS ---
EXAMINATION: XR chest 1V portable DATE: 12/11/2023 12:19 INDICATION: Stroke with altered mental status TECHNIQUE: frontal view of the chest was obtained. COMPARISON: Chest radiograph dated 06/05/2023 FINDINGS: The patient's hand along with ring and pulse oximeter on the fingers projects over the inferior left and central thorax. No focal airspace opacities, pulmonary edema, pleural effusion or pneumothorax. T he cardiomediastinal silhouette is normal. Median sternotomy wires and mediastinal surgical clips are seen, likely from prior coronary artery bypass grafting. IMPRESSION: 1. No acute cardiopulmonary disease. Reviewed, dictated and finalized at location L.
--- NOTE | ~2023-12-11 | CT_ITS ---
EXAMINATION: CTA brain carotid DATE: 12/11/2023 12:14 INDICATION: Speech deficit. Confusion. TECHNIQUE: Computed tomographic angiography (CTA) of the head was performed without and with 100 mL O mnipaque-350 intravenous contrast. CTA of the neck was performed with intravenous contrast. Automated exposure control and iterative reconstruction technique were employed. The dose-length product was 1 549.14 mGy-cm. Maximum intensity projection and volume rendered 3D-reconstructions were created by omer dey technologist on a separate workstation. COMPARISON: None. FINDINGS: HEAD CTA: There are scattered areas of low attenuation in the cerebral white matter. There is no intr acranial hemorrhage, acute infarction, or abnormal intracranial mass lesion. The ventricles are hilario l in size. There are likely changes of ocular lens replacement surgeries. There is mild mucosal thick ening in the ethmoid sinuses. The mastoid air cells are normal. Left vertebral artery is dominant. Th ere is no significant stenosis of basilar artery or the posterior cerebral arteries. There is no sign ificant stenosis of the intracranial internal carotid arteries or anterior or middle cerebral arterie s. Left A1 anterior cerebral artery segment is small, a normal variant. There is no aneurysm. Posteri or communicating arteries are not identified. NECK CTA: There is mild scarring at the lung apices. There are no pathologically enlarged lymph nodes . There is no significant stenosis of the vertebral arteries. There is plaque in the proximal interna l carotid arteries. There is 0% stenosis of the proximal right internal carotid artery relative to no rmal distal artery lumen diameter (NASCET criteria). There is 44% stenosis of the proximal left inter nal carotid artery relative to normal distal artery lumen diameter. There is severe cervical spondylo sis. IMPRESSION: 1. Moderate nonspecific cerebral white matter disease, which likely represents chronic small vessel i schemic disease. 2. No aneurysm or significant intracranial arterial stenosis. 3. 0% stenosis of the proximal right internal carotid artery relative to normal distal artery lumen d iameter (NASCET criteria). 4. 44% stenosis of the proximal left internal carotid artery relative to normal distal artery lumen d iameter. Reviewed, dictated and finalized at location A. IMPRESSION: 1. Moderate nonspecific cerebral white matter disease, which likely represents chronic small vessel ischemic disease. 2. No aneurysm or significant intracranial arterial stenosis. 3. 0% stenosis of the proximal right internal carotid artery relative to normal distal artery lumen diameter (NASCET criteria). 4. 44% stenosis of the proximal left internal carotid artery relative to normal distal artery lumen diameter.
[2023-12-11 11:43] LABS: Glucose Point of Care 147 mg/dl (65-105)
--- NOTE | 2023-12-11 11:51 | ECG_ITS ---
Measurements Intervals [place] Rate: 61 P: 79 NE: 147 QRS: 14 QRSD: 100 T: 16 QT: 437 QTc: 443 Interpretive Statements SINUS RHYTHM BORDERLINE R WAVE PROGRESSION, ANTERIOR LEADS BORDERLINE ST-T WAVE ABNORMALITY- ANTEROLAT/INF LEADS BASELINE ARTIFACT- I, II, III, AVR, AVL, AVF, V1, V4 BORDERLINE ECG COMPARED TO ECG 06/17/2023 20:56:22 SINUS RHYTHM NOW PRESENT Electronically Signed On 12-11-2023 13:45:26 CDT by Kev Dey D.O.
--- NOTE | 2023-12-11 11:53 | ED.AMS ---
HPI - Altered Mental Status General Chief Complaint: Altered Mental Status <Iesha Toth MD - Last Filed: 12/12/23 06:57> Stated Complaint: trouble speaking; nausea <Iesha Toth MD - Last Filed: 12/12/23 06:57> Time Seen by Provider: 12/11/23 11:49 <Iesha Toth MD - Last Filed: 12/12/23 06:57> Source: patient and family <Iesha Toth MD - Last Filed: 12/12/23 06:57> Mode of arrival: ambulatory <Iesha Toth MD - Last Filed: 12/12/23 06:57> History of Present Illness HPI narrative: patient lives alone, last time was taxing her daughter 5:00 p.m. last night., At 10:00 a.m. her daughter calld the patient and found out the patient have trouble to find words, slurry speech, confused. this morning patient have trouble seeing, and remembering Difficult to keep her balance <Iesha Toth MD - Last Filed: 12/12/23 06:57> Related Data Allergies/Adverse Reactions: Allergies Allergy/AdvReac Type Severity Reaction Status Date / Time black walnut Allergy Intermediate unknown Verified 12/11/23 14:06 metronidazole Allergy Jittery Verified 12/11/23 14:06 <Iesha Toth MD - Last Filed: 12/12/23 06:57> Review of Systems Review of Systems: ROS unobtainable: Yes unobtainable due to mental status <Iesha Toth MD - Last Filed: 12/12/23 06:57> [facility], [facility] Past Medical History Medical History: Medical History Atherosclerotic heart disease Belching symptom Bilateral upper abdominal discomfort Cerebrovascular accident Family history of carcinoid tumor H. pylori infection History of basal cell carcinoma (BCC) Hyperlipidemia Hypertension Myocardial infarct, old Need for 23-polyvalent pneumococcal polysaccharide vaccine Poison zbigniew Skin cancer screening Skin neoplasm Weight loss <Iesha Toth MD - Last Filed: 12/12/23 06:57> Surgical History Surgical History: Surgical History History of cataract removal with insertion of prosthetic lens <Iesha Toth MD - Last Filed: 12/12/23 06:57> Family History Family History: Family History Mother Acute myocardial infarction Other Family history of coronary artery disease <Iesha Toth MD - Last Filed: 12/12/23 06:57> Social History Social History: Social History Smoking status: Never smoker Alcohol intake: never Substance use: never Substance use type: does not use Lack of Transportation: No Lack of Food: Never True Current Housing: I Have Housing Concerned About Future Housing: No Difficulty Paying Gas/Electric Bills: No Difficulty Paying for Meds: No Currently Unemployed: No Education: High School Diploma/GED Difficulty w/ Childcare or Family Care: No Living arrangements: alone Spiritual care concerns: No <Iesha Toth MD - Last Filed: 12/12/23 06:57> Exam Narrative: General appearance: Well-developed, well-nourished Skin: Normal color Head: Normocephalic, nontraumatic Eyes: Clear conjunctiva left gazing ENT: Oropharynx normal, ears normal, nose normal Neck: Supple, nontender Chest and respiratory: Airway patent, no respiratory distress, no accessory muscle use Heart: Regular rate/rhythm Abdomen: Soft, nontender, no organomegaly, quiet bowel sounds Vascular: Normal peripheral pulses, normal capillary refill. Musculoskeletal: Normal range of motion, nontender back Neurologic: Alert and oriented to her name only <Iesha Toth MD - Last Filed:
[2023-12-11 12:23] LABS: Basophils Absolute Auto 0.03 K/mm3 (0.00-0.10); Basophils Percent Auto 0.3 % (0.0-1.0); Eosinophils Absolute Auto 0.01 K/mm3 (0.02-0.50); Eosinophils Percent Auto 0.1 % (1.0-6.0); Hematocrit 40.3 % (35.0-42.0); Hemoglobin 13.2 g/dL (11.7-13.8); Immature Granulocyte Absolute 0.04 K/mm3 (0.00-0.00); Immature Granulocyte Percent A 0.4 % (0.0-0.0); Lymphocytes Absolute Auto 0.88 K/mm3 (1.10-4.50); Lymphocytes Percent Auto 8.7 % (18.0-42.0); Mean Corpuscular HGB Conc 32.8 g/dL (32-36); Mean Corpuscular Hemoglobin 27.8 pg (27.0-31.0); Mean Platelet Volume 11.4 fl (9.2-11.8); Monocytes Absolute Auto 0.32 K/mm3 (0.10-0.90); Monocytes Percent Auto 3.2 % (2.0-11.0); Neutrophils Absolute Auto 8.87 K/mm3 (1.70-7.20); Neutrophils Percent Auto 87.3 % (50.0-70.0); Platelet Count Result 219 K/mm3 (150-420); Red Blood Count 4.74 M/mm3 (4.20-5.40); Red Cell Distribution Width 13.8 % (11.6-14.4); White Blood Count 10.2 K/mm3 (4.8-10.8)
[2023-12-11 12:43] LABS: Alanine Aminotransferase 15 U/L (14-59); Albumin Level 3.8 g/dL (3.4-5.0); Alkaline Phosphatase 70 U/L (46-116); Anion Gap 16 mmol/L (8-16); Aspartate Amino Transferase 20 U/L (15-37); Bilirubin,Total 0.8 mg/dL (0.00-1.00); Blood Urea Nitrogen 12 mg/dL (7-18); Carbon Dioxide 23 mmol/L (21-32); Chloride 99 mmol/L (98-108); Estimated Glomerular Filt Rate > 60; Glucose 152 mg/dL (70-99); Osmolality Calculated 288 mOsm/kg (285-295); Potassium 3.2 mmol/L (3.5-5.1); Sodium 138 mmol/L (136-145); Total Protein 7.2 g/dL (6.4-8.2); Troponin I 10.6 ng/L (0.00-60.4)
[2023-12-11] MEDS: ONDANSETRON INJ 4 MG/2 ML VIAL IV PUSH (12:55)
[2023-12-11] MEDS: ASPIRIN 81 MG CHEWABLE TABLET 324 MG PO (12:57)
[2023-12-11 13:16] LABS: Appearance Urine Clear (Clear); Bilirubin Urine Negative (Negative); Blood Urine 1+ (Negative); Color Urine Light Yellow (Yellow); Glucose Urine UA Trace (Negative); Ketones Urine 1+ (Negative); Leukocyte Esterase Ur 1+ LEU/UL (Negative); Nitrate Urine Negative (Negative); Protein Urine Negative (Negative); Specific Grav Ur 1.015 (1.010-1.020); Urobilinogen Urine 0.2 mg/dL (0.2-1.0); pH Urine 7.5 (5.0-8.0)
--- NOTE | 2023-12-11 13:23 | PC.NURSE ---
ERP made aware pt BP is elevated.
[2023-12-11 13:30] LABS: Add Urine Microscopic? YES; Bacteria Urine Rare /hpf; Squamous Epithelial Cell Urine Rare /hpf (Few); WBC Urine 0-3 /hpf (0-3)
--- NOTE | 2023-12-11 14:05 | PC.NURSE ---
Pt's son at bedside. Pt has no complaints at this time. Pt and son aware we are awaiting a neurology bed at [facility].
--- NOTE | 2023-12-11 14:10 | PC.NURSE ---
Pt requesting help urinating. Pt placed on and off bedpan and was able to urinate on her own.
--- NOTE | 2023-12-11 15:20 | PC.NURSE ---
ERP made aware pt's BP continues to increase to 200/78. ERP gave order to give home metoprolol dose.
[2023-12-11] MEDS: METOPROLOL TARTRATE 50 MG TAB PO (15:26)
--- NOTE | 2023-12-11 18:15 | PC.NURSE ---
[facility] Finch contacted [facility] for an update of pt transfer status. They are unable to give an estimate on when the patient will be getting a room at this time.
--- NOTE | 2023-12-11 20:08 | PC.NURSE ---
[facility] Transfer line called for an update. They state that there is not currently a bed available for the patient, and they will let up know when they know more
--- NOTE | 2023-12-11 23:34 | PC.NURSE ---
[facility] called for status check. No bed available at this time. They will call with updates
[2023-12-12] VITALS (53 sets, daily range): BP systolic 101–156; BP diastolic 49–81; PULSE 50–86; RESP 11–20; TEMP 36.6–36.8; O2SAT 92–100
[2023-12-12] MEDS: POTASSIUM CHLORIDE 20 MEQ PACKET (FOR LIQUID) 40 MEQ PO (07:11)
[2023-12-12] MEDS: METOPROLOL TARTRATE 50 MG TAB PO (09:49)
[2023-12-12] MEDS: ASPIRIN 81 MG CHEWABLE TABLET 324 MG PO (09:49)
--- NOTE | 2023-12-12 11:44 | ECG_ITS ---
Measurements Intervals [place] Rate: 54 P: 75 AR: 158 QRS: -21 QRSD: 96 T: 50 QT: 502 QTc: 477 Interpretive Statements SINUS BRADYCARDIA ANTEROSEPTAL INFARCT, AGE INDETERMINATE T WAVE ABNORMALITY IN ANTERIOR LEADS- CONSIDER ISCHEMIA BASELINE ARTIFACT- I, II ABNORMAL ECG COMPARED TO ECG 12/11/2023 13:10:12 SINUS BRADYCARDIA NOW PRESENT MYOCARDIAL INFARCT FINDING NOW PRESENT T WAVE ABNORMALITY NOW PRESENT Electronically Signed On 12-12-2023 12:22:58 CDT by Kev Dey D.O.
== END 2023-12-12 15:00 | disposition short-term general hospital (02) ==
PROVIDERS: Emergency Medicine; Emergency Provider Internal Medicine Critical Care Medicine; PCP Nurse Practitioner Family
DX: I63.9 Cerebral infarction, unspecified (principal); I25.10 Atherosclerotic heart disease of native coronary artery without angina pectoris; E78.5 Hyperlipidemia, unspecified; I10 Essential (primary) hypertension; I25.2 Old myocardial infarction; Z86.73 Personal history of transient ischemic attack (TIA), and cerebral infarction without residual deficits
CPT/HCPCS: 36415; 70496; 70498; 71045; 80053; 81001; 82948; 84484; 85025; 85610; 85730; 87086; 87088; 93005; 96374; 99285; A9270; J2405; Q9967

== ENCOUNTER 2024-10-22 10:47 | Outpatient (CLI) | payer MEDICARE, SELFPAY ==
[2024-10-22 11:17] LABS: Basophils Absolute Auto 0.09 K/mm3 (0.00-0.10); Basophils Percent Auto 1.2 % (0.0-1.0); Eosinophils Absolute Auto 0.07 K/mm3 (0.02-0.50); Eosinophils Percent Auto 0.9 % (1.0-6.0); Hematocrit 38.2 % (35.0-42.0); Hemoglobin 12.4 g/dL (11.7-13.8); Immature Granulocyte Absolute 0.03 K/mm3 (0.00-0.00); Immature Granulocyte Percent A 0.4 % (0.0-0.0); Lymphocytes Absolute Auto 1.76 K/mm3 (1.10-4.50); Lymphocytes Percent Auto 22.8 % (18.0-42.0); Mean Corpuscular HGB Conc 32.5 g/dL (32-36); Mean Corpuscular Hemoglobin 27.7 pg (27.0-31.0); Mean Corpuscular Volume 85.3 fL (78.0-102.0); Mean Platelet Volume 10.8 fl (9.2-11.8); Monocytes Absolute Auto 0.56 K/mm3 (0.10-0.90); Monocytes Percent Auto 7.3 % (2.0-11.0); Neutrophils Absolute Auto 5.21 K/mm3 (1.70-7.20); Neutrophils Percent Auto 67.4 % (50.0-70.0); Platelet Count Result 234 K/mm3 (150-420); Red Blood Count 4.48 M/mm3 (4.20-5.40); Red Cell Distribution Width 13.9 % (11.6-14.4); White Blood Count 7.7 K/mm3 (4.8-10.8)
[2024-10-22 11:48] LABS: Alanine Aminotransferase 22 U/L (14-59); Albumin Level 3.9 g/dL (3.4-5.0); Alkaline Phosphatase 97 U/L (46-116); Anion Gap 11 mmol/L (4-12); Aspartate Amino Transferase 22 U/L (15-37); Bilirubin,Total 0.6 mg/dL (0.00-1.00); Blood Urea Nitrogen 13 mg/dL (7-18); Calcium 9.7 mg/dL (8.5-10.1); Carbon Dioxide 27 mmol/L (21-32); Chloride 105 mmol/L (98-108); Estimated Glomerular Filt Rate 42; Glucose 165 mg/dL (70-99); Osmolality Calculated 300 mOsm/kg (285-295); Potassium 4.3 mmol/L (3.5-5.1); Sodium 143 mmol/L (136-145); Total Protein 6.8 g/dL (6.4-8.2)
== END 2024-10-22 10:48 | disposition home or self-care (01) ==
PROVIDERS: PCP Nurse Practitioner Family; Visit Provider Internal Medicine Cardiovascular Disease
DX: I25.10 Atherosclerotic heart disease of native coronary artery without angina pectoris (principal)
CPT/HCPCS: 36415; 80053; 85025

== ENCOUNTER 2024-12-21 16:26 | Emergency (ER) | payer MEDICARE, SELFPAY ==
--- NOTE | ~2024-12-21 | XR_ITS ---
XR shoulder RT min 2V DATE: 12/21/2024 16:49 INDICATION: Fall. Right shoulder pain, limited range of motion TECHNIQUE: 4 views COMPARISON: None FINDINGS: There is a comminuted fractures of the proximal humerus including transverse surgical neck fracture and comminuted fracture of the humeral head and greater tuberosity. There is inferior sublux ation of the humerus at the glenohumeral joint. Normal alignment at the acromioclavicular joint. Diffuse osteopenia. IMPRESSION: Comminuted fracture of the right humeral head , greater tuberosity and surgical neck Reviewed, dictated and finalized at location A.
--- NOTE | ~2024-12-21 | XR_ITS ---
XR hand RT min 3V DATE: 12/21/2024 16:48 INDICATION: Fall. Right hand pain. TECHNIQUE: 3 views COMPARISON: None FINDINGS: Diffuse osteopenia. There is chondrocalcinosis at the triangular cartilage in intercarpal joint. There is polyarticular osteoarthritis including triscaphe, first carpometacarpal, second and third me tacarpophalangeal and some distal interphalangeal joints. No recent fracture or dislocation, periosteal reaction or bone destruction is detected. 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
[2024-12-21 16:26] VITALS: BP 148/71; PULSE 81; RESP 19; TEMP 36.3; O2SAT 97
--- OUTSIDE RECORDS SUMMARY | 2024-12-21 16:27 | XMS_ITS | Clinical Summary ---
Author Organization [facility] Address [address] [place] [address] Care Team Providers Care Migration Agent Name Role Phone Layla Christensen APRN-BULLET SWAGING MACHINE OPERATOR Primary Care Provid er Source Comments [facility],non-owned Affiliates and Associated Physician Practices is amultiple site organization consisting of ambulatory clinics and hospital sitesin [place], [place], [place] and [place]. This disclosure is being madepursuant to the Care Everywhere program and may not contain all information available regarding this patient. Last updated 18.[facility] Allergies Active Allergy Reactions Criticality Noted Date Comments Tree Nuts Angioedema High 12/13/2023 Black walnuts Medications * Be aware that medications may not be up to date on this document. Alwaysverify current medications with the patient. Medication Sig Dispensed Refills Start Date End Date Status aspirin (Aspirin) 81 MG chew tablet Take 1 (one) tablet by mouth once daily Active multivitamin daily tablet Take 1 (one) tablet by mouth daily with food Active atorvastatin (Lipitor) 40 MG tablet Take 1 (one) tablet by mouth at bedtime 30 tablet 12/15/2023 Active metoprolol tartrate IR 37.5 MG TABSIndications:Atria l Fibrillation,Atrial Flutter Take 37.5 mg by mouth 2 times daily Reasons: Atrial Fibrillation, Atrial Flutter 60 tablet 12/15/2023 Active apixaban (Eliquis) 5 MG tablet Take 1 (one) tablet by mouth 2 times daily 60 tablet 12/15/2023 Active Active Problems Problem Noted Date Diagnosed Date TIA (transient ischemic attack) 12/12/2023 Social History Tobacco Use Types Packs/Day Years Used Date Smoking Tobacco: Never Assessed PHQ-2 Answer Date Recorded Patient Health Questionnaire-2 Score 0 12/14/2023 Sex and Gender Information Value Date Recorded Sex Assigned at Not on file Gender Identity Not on file Sexual Orientation Not on file Last Filed Vital Signs Vital Sign Reading Time Taken Comments Blood Pressure 147/87 12/15/2023 12:31 PM CDT Pulse 76 12/15/2023 12:31 PM CDT Temperature 36.7 C (98.1 F) 12/15/2023 12:31 PM CDT Respiratory Rate 18 12/15/2023 12:31 PM CDT Oxygen Saturation 100% 12/15/2023 12:31 PM CDT Inhaled Oxygen Concentration - - Weight 61.7 kg (136 lb) 12/14/2023 7:56 AM CDT Height - - Body Mass Index - - Plan of Treatment Health Maintenance Due Date Last Done Comments BONE DENSITY TESTING 1935 MEDICARE AWV 12 MONTHS 1935 DTAP/TDAP/TD VACCINES (1 - Tdap) 1954 PNEUMOCOCCAL VACCINE 50+ (1 of 1 - PCV) 1985 ZOSTER VACCINE (1 of 2) 1985 Respiratory Syncytial Virus (RSV) Vaccine Pt: or over 60 yrs (1 - 1-dose 75+ series) 2010 COVID-19 VACCINE ( - 2023-2 5 season) 2024 08/24/2021, 11/26/2020, 10/29/2020 INFLUENZA VACCINE (#1) 2024 DEPRESSION SCREENING 10/01/2024 12/12/2023 HEPATITIS B VACCINE Aged Out No longe r eligible based on patient's age to complete this topic HIB VACCINE Aged Out No longer eligi ble based on patient's age to complete this topic HPV VACCINE Aged Out No longer eligi ble based on patient's age to complete this topic MENINGOCOCCAL (Group B) VACCINE SHARED DECISION-MAKING Aged Out No longer eligible based on patient's age to complete this topic MENINGOCOCCAL GROUPS A/C/Y/W VACCINE Aged Out No longer eligible b ased on patient's age to complete this topic Advance Directives Documents on File Type Date Recorded Patient Change Consultant Expl anation Adv Directive/Living Will/POA 12/17/2023 11:23 PM * LIMITED RESUSCITATION-PRIOR AND AFTER ARREST (Latest Code Status on File) Date Activated Date Inactivated Comments 12/12/2023 8:14 PM 12/15/2023 2:41 PM Question Answer Comments Limited Resuscitation: No Chest Compress ionNo Intubation, No Invasive VentilationNo Cardioversion, No Defibrilation, No External or Internal PacemakerNo Cardioactive Drugs, No Vasopressors * Full Code Date Activated Date Inactivated Comments 12/12/2023 5:29 PM 12/12/2023 8:14 PM Care Teams Migration Agent Relationship Specialty Start Date End Date Layla Christensen, VAULT INSTALLER-BULLET SWAGING MACHINE OPERATOR [address], [place] [id number] PCP - General Nurse Practitioner Family 12/12/23
--- OUTSIDE RECORDS SUMMARY | 2024-12-21 16:27 | XMS_ITS | Clinical Summary ---
Author Organization [facility] Address [address] [place] [id number] Care Team Providers Care Salt Refiner Name Role Phone Unavailable Primary Care Provider Unavailabl e Social History Tobacco Use Types Packs/Day Years Used Date Smoking Tobacco: Never Comments Unknown Sex and Gender Information Value Date Recorded Sex Assigned at Not on file Legal Sex Female 10:51 PM CDT Gender Identity Not on file Sexual Orientation Not on file Last Filed Vital Signs Vital Sign Reading Time Taken Comments Blood Pressure 142/78 09/09/2010 11:23 AM SLAG MIXER Pulse 86 09/09/2010 11:22 AM SLAG MIXER Temperature - - Respiratory Rate 16 09/09/2010 11:22 AM SLAG MIXER Oxygen Saturation - - Inhaled Oxygen Concentration - - Weight 69.4 kg (153 lb) 09/09/2010 11:22 AM SLAG MIXER Height 162.6 cm (5' 4 ) 09/09/2010 11:22 AM SLAG MIXER Body Mass Index 26.26 09/09/2010 11:22 AM SLAG MIXER Plan of Treatment Health Maintenance Due Date Last Done Comments DTaP, Tdap and Td Vaccines ( 1 - Tdap) 11[birth year]05/1954 Zoster Vaccines (1 of 2) 11/05/1985 Pneumococcal Vaccine: 65+ Ye ars (1 of 1 - PCV) 11/05/2000 RSV Immunization or 60+ Years (1 - 1-dose 75+ series) 11/05/2010 COVID-19 Vaccine ( - 2023-2 5 season) 2024 Influenza Adult (#1) 2024 Meningococcal B Vaccine Aged Out No l onger eligible based on patient's age to complete this topic Meningococcal Vaccine Aged Out No theo jackie eligible based on patient's age to complete this topic RSV Immunizations Under 20 Months Aged Out No longer eligible based on patient's age to complete this topic
--- NOTE | 2024-12-21 16:29 | ED_ITS ---
HPI - Extremity Injury (Upper) General Chief Complaint: Fall Stated Complaint: shoulder pain Time Seen by Provider: 12/21/24 16:29 Source: patient Mode of arrival: ambulatory Limitations: no limitations History of Present Illness HPI narrative: patient is an 89-year-old female with a ground level fall in the backyard today. She landed on her right shoulder and has difficulty lifting the right upper extremity. Also, her right hand is having ecchymosis secondary to a door closing on her hand a few days ago. There is pain but it is minimal. complaint: injury to: right and shoulder Onset (ago): hour(s) ( Two) Other Extremity Injury: Right: hand ( separate injury a few days ago) Other injuries: none Place: home and outdoors Severity: mild Severity scale (1-10): 2 Relieving factors: immobilization Exacerbating factors: movement of extremity Context: fall and direct blow Associated symptoms: denies other symptoms Treatments prior to arrival: other ( none) Related Data Home Medications ?Medication ?Instructions ?Recorded ?Confirmed ?Last Taken ?Type rosuvastatin 20 mg tablet mg 12/21/24 Unknown History Allergies Allergy/AdvReac Type Severity Reaction Status Date / Time black walnut Allergy Intermediate unknown Verified 12/21/24 17:02 metronidazole Allergy Jittery Verified 12/21/24 17:02 Review of Systems Review of Systems: All systems reviewed & are unremarkable except as noted in HPI and below Constitutional: Constitutional: Reports no additional constitutional complaints Eyes: Eyes: Reports no additional eye complaints ENT: Reports system reviewed and no additional complaints, except as documented Cardiovascular: Cardiovascular: Reports no additional cardiovascular complaints Respiratory: Respiratory: Reports no additional respiratory complaints Gastrointestinal: Gastrointestinal: Reports no additional gastrointestinal complaints Genitourinary: Genitourinary: Reports no additional female genitourinary complaints Musculoskeletal: Musculoskeletal: Reports no additional musculoskeletal complaints Integumentary/Breasts: Skin/Breast: Reports system reviewed and no additional complaints, except as docu Neurologic: Reports system reviewed and no additional complaints, except as documented Psychiatric: Psychiatric: Reports no additional psychiatric complaints Endocrine: Endocrine: Reports no additional endocrine complaints Hematologic/Lymphatic: Hematologic/Lymphatic: Reports no additional hematologic/lymphatic complaints Allergic/Immunologic: Allergic/Immunologic: Reports no additional allergic/immunologic complaints PMFSH Past Medical History Medical History Family history of carcinoid tumor Weight loss Bilateral upper abdominal discomfort Belching symptom H. 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 Hyperlipidemia Hypertension Skin neoplasm Surgical History Surgical History History of cataract removal with insertion of prosthetic lens Family History Family History Mother Acute myocardial infarction Other Family history of coronary artery disease Social History Social History Smoking status: Never smoker Alcohol intake: never Substance use: never Substance use type: does not use Lack of Transportation: No Lack of Food: Never True Current Housing: I Have Housing Concerned About Future Housing: No Difficulty Paying Gas/Electric Bills: No Difficulty Paying for Meds: No Currently Unemployed: No Education: High School Diploma/GED Difficulty w/ Childcare or Family Care: No Living arrangements: alone Spiritual care concerns: No Exam Const: General: healthy appearing Nutritional Appearance: well nourished Orientation/consciousness: patient oriented x3 Limitations: no limitations HENMT: Head: normal to inspection Ears: external ears normal Face/Nose/S inus: Normal external nose present Eyes: Conjunctivae: conjunctivae normal Pupils: Equal, round and reactive pupils present EOM: EOMs intact bilaterally Neck: Neck: normal visual inspection Chest: Chest palpation & inspection: normal inspection of the chest Resp: Effort & Inspection: normal respiratory effort, not labored and no retractions Auscultation: clear to auscultation bilaterally, no crackles and no rales Cardio: Rate: regular rate Rhythm: regular rhythm Heart sounds: no murmurs GI: Inspection: non-distended GI Palp: Yes Soft to palpation and No Tenderness to palpation present (GI) Auscultation: normal bowel sounds : General: Yes bladder normal to palpation Back/Spine/Pelvis: Back: no CVA tenderness Skin: General skin exam: normal color Rashes: no rashes Wounds: no wounds Other: Right hand has ecchymosis on the 3 4 and 5th digit without deformity Neuro: General: patient oriented x3, moves all extremities, no meningeal signs, no focal motor deficits and CN's II-XI intact bilaterally Cranial nerves: Yes Nystagmus not present Speech: normal speech Gait exam (Neuro): Normal gait present Extrem: General: abnormal to inspection Other: right shoulder has anterior fullness and unable to lift the right upper extremity at this time; no ecchymosis Psych: Mental Status: mental status grossly normal Affect: normal affect Attitude: cooperative Course Vital Signs Vital signs: Vital Signs Temperature 36.3 C L 12/21/24 16:26 Pulse Rate 81 12/21/24 16:26 Respiratory Rate 19 12/21/24 16:26 Blood Pressure 148/71 H 12/21/24 16:26 Pulse Oximetry 97 12/21/24 16:26 Oxygen Delivery Room Air 12/21/24 16:26 Temperature 36.3 C L 12/21/24 16:26 Pulse Rate 81 12/21/24 16:26 Respiratory Rate 19 12/21/24 16:26 Blood Pressure 148/71 H 12/21/24 16:26 Pulse Oximetry 97 12/21/24 16:26 Oxygen Delivery Room Air 12/21/24 16:26 MDM - Extremity Injury (Upper) MDM Narrative Medical decision making narrative: patient is an 89-year-old female with a fall to her right shoulder prior to arrival. She also has a right hand injury from a few days ago. We will do x- ray of the right shoulder in the right hand. Imaging Data Attestation: I personally reviewed and interpreted this imaging study as follows: Radiologist's impression: x-ray right hand was negative for acute process x-ray right shoulder shows IMPRESSION: Comminuted fracture of the right humeral head , greater tuberosity and surgical neck Discharge Plan Discharge Clinical Impression: Humeral fracture Qualifiers: Encounter type: initial encounter Humerus Location: proximal Fracture type: closed Fracture morphology: unspecified fracture morphology Laterality: right Qualified Code(s): S42.201A - Unspecified fracture of upper end of right humerus, initial encounter for closed fracture Patient Disposition: Home, Self-Care Condition: Stable Instructions: Arm Fracture in Adults (DC) Additional Instructions: please wear the shoulder immobilizer all the time until you see the orthopedic surgeon agenda. Please follow-up with the primary doctor in the next week. Please make appointment with an orthopedic surgeon that works on shoulders /arms in the next 1-2 weeks. Patient Language: Iraqi Prescriptions: New hydrocodone-acetaminophen 5-325 mg tablet 1 tablet PO Q8H PRN (Reason: pain) Qty: 20 0RF No Action rosuvastatin 20 mg tablet acetaminophen [Mapap (acetaminophen)] 325 mg Tablet 650 mg PO Q4H PRN (Reason: Mild Pain (1-3) Or Fever) Qty: 0 0RF aspirin 81 mg tablet,delayed release (DR/EC) 81 mg PO DAILY Qty: 90 3RF multivitamin Capsule 1 cap PO DAILY Qty: 90 3RF atorvastatin 40 mg tablet See Rx Instructions .ROUTE .COMPLEX Qty: 30 3RF Dose Instruction: TAKE ONE TABLET BY MOUTH BEDTIME Rx Instructions: TAKE ONE TABLET BY MOUTH BEDTIME amlodipine 10 mg tablet See Rx Instructions .ROUTE .COMPLEX Qty: 90 3RF Dose Instruction: TAKE ONE TABLET BY MOUTH DAILY Rx Instructions: TAKE ONE TABLET BY MOUTH DAILY Eliquis 5 mg tablet See Rx Instructions .ROUTE .COMPLEX Qty: 60 1RF Dose Instruction: TAKE 1 TABLET BY MOUTH TWICE A DAY Rx Instructions: TAKE 1 TABLET BY MOUTH TWICE A DAY metoprolol tartrate 37.5 mg tablet See Rx Instructions .ROUTE .COMPLEX Qty: 60 0RF Dose Instruction: TAKE ONE TABLET BY MOUTH TWICE A DAY Rx Instructions: TAKE ONE TABLET BY MOUTH TWICE A DAY triamcinolone acetonide 0.5 % cream See Rx Instructions .ROUTE .COMPLEX Qty: 30 0RF Dose Instruction: 1 APPLIC TOPICALLY THREE TIMES A DAY NEEDED FOR RASH Rx Instructions: 1 APPLIC TOPICALLY THREE TIMES A DAY NEEDED FOR RASH Follow-up/Referrals: Layla Christensen COST RECORDER [Primary Care Provider] - Time of Disposition: 17:25
--- OUTSIDE RECORDS SUMMARY | 2024-12-21 16:48 | XMS_ITS | Clinical Summary ---
Author Organization [facility] Address [address] [place] [address] Care Team Providers Care Sports Development Officer Name Role Phone Layla Christensen APRN-CONCERT OR LECTURE HALL MANAGER Primary Care Provid er Source Comments [facility],non-owned Affiliates and Associated Physician Practices is amultiple site organization consisting of ambulatory clinics and hospital sitesin [place], [place], [place] and [place]. This disclosure is being madepursuant to the Care Everywhere program and may not contain all information available regarding this patient. 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
--- OUTSIDE RECORDS SUMMARY | 2024-12-21 16:48 | XMS_ITS | Clinical Summary ---
Author Organization [facility] Address [address] [place] [id number] Care Team Providers Care Compound Coating Machine Offbearer Name Role Phone Unavailable Primary Care Provider [...] Comments Blood Pressure 142/78 09/09/2010 11:23 AM EPIC CADENCE ANALYST Pulse 86 09/09/2010 11:22 AM EPIC CADENCE ANALYST Temperature - - Respiratory Rate 16 09/09/2010 11:22 AM EPIC CADENCE ANALYST Oxygen Saturation - - Inhaled Oxygen Concentration - - Weight 69.4 kg (153 lb) 09/09/2010 11:22 AM EPIC CADENCE ANALYST Height 162.6 cm (5' 4 ) 09/09/2010 11:22 AM EPIC CADENCE ANALYST Body Mass Index 26.26 09/09/2010 11:22 AM EPIC CADENCE ANALYST Plan of Treatment Health Maintenance Due Date [...]
[2024-12-21] MEDS: ACETAMINOPHEN 500 MG TABLET 1000 MG PO (18:27)
[2024-12-21 18:32] VITALS: BP 117/61; PULSE 74; RESP 20; TEMP 36.9; O2SAT 94
== END 2024-12-21 18:34 | disposition home or self-care (01) ==
PROVIDERS: Emergency Provider Emergency Medicine; PCP Nurse Practitioner Family
DX: S42.201A Unspecified fracture of upper end of right humerus, initial encounter for closed fracture (principal); E78.5 Hyperlipidemia, unspecified; I10 Essential (primary) hypertension; I25.2 Old myocardial infarction; Z86.73 Personal history of transient ischemic attack (TIA), and cerebral infarction without residual deficits; Z85.828 Personal history of other malignant neoplasm of skin; W19.XXXA Unspecified fall, initial encounter; Y92.007 Garden or yard of unspecified non-institutional (private) residence as the place of occurrence of the external cause
CPT/HCPCS: 73030; 73130; 99284; A9270; L3670

== ENCOUNTER 2024-12-24 12:05 | Outpatient (CLI) | payer MEDICARE, SELFPAY ==
[2024-12-24 12:29] LABS: Basophils Absolute Auto 0.05 K/mm3 (0.00-0.10); Basophils Percent Auto 0.4 % (0.0-1.0); Eosinophils Absolute Auto 0.03 K/mm3 (0.02-0.50); Eosinophils Percent Auto 0.2 % (1.0-6.0); Hematocrit 32.9 % (35.0-42.0); Hemoglobin 10.4 g/dL (11.7-13.8); Immature Granulocyte Absolute 0.06 K/mm3 (0.00-0.00); Immature Granulocyte Percent A 0.5 % (0.0-0.0); Lymphocytes Absolute Auto 1.84 K/mm3 (1.10-4.50); Lymphocytes Percent Auto 13.8 % (18.0-42.0); Mean Corpuscular HGB Conc 31.6 g/dL (32-36); Mean Corpuscular Hemoglobin 26.7 pg (27.0-31.0); Mean Corpuscular Volume 84.6 fL (78.0-102.0); Mean Platelet Volume 11.2 fl (9.2-11.8); Monocytes Absolute Auto 1.46 K/mm3 (0.10-0.90); Neutrophils Absolute Auto 9.88 K/mm3 (1.70-7.20); Neutrophils Percent Auto 74.1 % (50.0-70.0); Platelet Count Result 232 K/mm3 (150-420); Red Blood Count 3.89 M/mm3 (4.20-5.40); Red Cell Distribution Width 14.2 % (11.6-14.4); White Blood Count 13.3 K/mm3 (4.8-10.8)
[2024-12-24 13:06] LABS: Alanine Aminotransferase 18 U/L (14-59); Albumin Level 3.9 g/dL (3.4-5.0); Alkaline Phosphatase 107 U/L (46-116); Anion Gap 15 mmol/L (4-12); Aspartate Amino Transferase 20 U/L (15-37); Bilirubin,Total 0.8 mg/dL (0.00-1.00); Blood Urea Nitrogen 15 mg/dL (7-18); Calcium 9.2 mg/dL (8.5-10.1); Carbon Dioxide 23 mmol/L (21-32); Chloride 101 mmol/L (98-108); Estimated Glomerular Filt Rate 54; Glucose 117 mg/dL (70-99); Magnesium 1.7 mg/dL (1.8-2.4); Osmolality Calculated 289 mOsm/kg (285-295); Potassium 3.4 mmol/L (3.5-5.1); Sodium 139 mmol/L (136-145); Total Protein 7.1 g/dL (6.4-8.2)
== END 2024-12-24 12:06 | disposition home or self-care (01) ==
PROVIDERS: PCP Nurse Practitioner Family; Visit Provider Nurse Practitioner Family
DX: Z01.818 Encounter for other preprocedural examination (principal); E83.42 Hypomagnesemia
CPT/HCPCS: 36415; 80053; 83735; 85025

== ENCOUNTER 2025-01-13 14:21 | Outpatient (RCR) | payer MEDICARE, SELFPAY ==
--- NOTE | 2025-01-13 15:16 | OPREHPOC ---
Outpatient Therapy Plan of Care This is a Multidisciplinary Plan of Care that may contain components documented by all disciplines (PT, OT, and ST.) PT Problem 1 PT Problem #1 Knowledge Deficit PT Goal 1 Goal / Goal Update independent and compliant with HEP Target Visit 6 PT Problem 2 PT Problem #2 Pain PT Goal 1 Goal / Goal Update maintain pain free rom and use of the R UE throughout treatment/rehab. Target Visit 12 PT Problem 3 PT Problem #3 Impaired Range of Motion PT Goal 1 Goal / Goal Update 90 degrees passive R shoulder abd 20 degrees passive R shoulder ER Target Visit 4 PT Goal 2 Goal / Goal Update 140 degrees active R shoulder flex 65 degrees active R shoulder IR 75 degrees active R shoulder ER 120 degrees active R shoulder abd Target Visit 12 PT Problem 4 PT Problem #4 Impaired Strength PT Goal 1 Goal / Goal Update 4/5 or better R shoulder flex and abd 4+/5 or better R shoulder ER and IR Target Visit 12 PT Problem 5 PT Problem #5 Impaired Functional Mobility PT Goal 1 Goal / Goal Update quick dash to display 20% or less functional deficits patient to reach behind head to the cervical spine with the R UE patient to reach behind back to the lumbar spine with the R UE patient to lift 2lb weight to overhead level shelf with the R UE Target Visit 12
--- NOTE | 2025-01-13 15:16 | PTOPEVAL1 ---
Assessment and note entered by JT File, PT Evaluation Information Assessment Status Evaluation Onset 12/25/24 Subjective Information patient reports she fell in the back yard on 12/21. she reports she had 3 fractures in the R humerus. 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 she was just at the surgeons office yesterday, and he is happy with how the shoulder is healing. patient is wearing a shoulder abduction sling of the R UE . she reports she has been in a sling since the injury. Reported Pain Level Pain Score 0: Self Report Assessment PT Clinical Summary mrs. ramirez is an 89 yo woman who presents to skilled PT for evaluation and treatment s/p R reverse total shoulder replacement. she presents today with deficits in rom and strength of the R shoulder. however, she is limited in rom post operatively at this time from her surgeon. continued skilled PT is indicated to improve her objective/functional deficits and return to her prior level functional activity performance/ quality of life. Plan of Care Interventions Electrical Stimulation,Hot Pack/Cold Pack,Manual Therapy,Neuro Re-education,Patient/Caregiver Education,Therapeutic Activities,Therapeutic Exercise PT Services Indicated Yes Treatment Frequency and 3x weekly for 12 visits Duration These treatments will address the objective and functional deficits as defined above. The patient will be advanced safely and appropriately in order for the patient to progress towards his/her prior level of function. Additional exercises will be introduced and as well as a comprehensive home exercise program upon discharge, if needed, ?to ensure carryover of functional gains achieved in the clinic. This treatment plan has been reviewed and agreement upon by the patient.
--- NOTE | 2025-01-27 14:02 | PCPTNOTE ---
Patient called & cancelled scheduled appointment this date due to not having a ride. She will be in on Sunday. -Thu Barraza PT
--- NOTE | 2025-02-11 17:00 | OPREHPOC ---
Outpatient Therapy Plan of Care This is a Multidisciplinary Plan of Care that may contain components documented by all disciplines (PT, OT, and ST.) PT Problem 1 PT Problem #1 Knowledge Deficit PT Goal 1 Goal / Goal Update independent and compliant with HEP Target Visit 6 Progress Met PT Problem 2 PT Problem #2 Pain PT Goal 1 Goal / Goal Update maintain pain free rom and use of the R UE throughout treatment/rehab. Target Visit 12 Progress Met PT Problem 3 PT Problem #3 Impaired Range of Motion PT Goal 1 Goal / Goal Update 90 degrees passive R shoulder abd 20 degrees passive R shoulder ER Target Visit 4 Progress Met PT Goal 2 Goal / Goal Update 140 degrees active R shoulder flex 65 degrees active R shoulder IR 75 degrees active R shoulder ER 120 degrees active R shoulder abd Target Visit 22 Progress Not Met PT Problem 4 PT Problem #4 Impaired Strength PT Goal 1 Goal / Goal Update 4/5 or better R shoulder flex and abd 4+/5 or better R shoulder ER and IR Target Visit 22 Progress Not Met PT Problem 5 PT Problem #5 Impaired Functional Mobility PT Goal 1 Goal / Goal Update quick dash to display 20% or less functional deficits patient to reach behind head to the cervical spine with the R UE patient to reach behind back to the lumbar spine with the R UE patient to lift 2lb weight to overhead level shelf with the R UE Target Visit 22 Progress Not Met
--- NOTE | 2025-02-11 17:00 | PTOPPROG ---
Assessment and note entered by Letha Rockwell, PT Evaluation Information Assessment Status Progress ICD-10 Condition Codes (PT) Encounter for other orthopedic aftercare Z47.89, Aftercare following joint replacement surgery Z47. 1 Onset 12/25/24 Subjective Information Beti reports her shoulder has been pain free both at rest and during PT sessions. She has continued to wear her sling at all times and is hoping to be cleared from wearing it when she goes back to the doctor on Sunday. Due to the sling she has been sleeping in the recliner and denies any sleep interference due to shoulder pain. She is still under post-op restrictions per protocol (no more than 90 deg flex/abd and no more than 20 deg ER). Assessment PT Clinical Summary Mrs. Evans has attended 10 total skilled PT visits following R reverse TSA. She is currently under post op restrictions of no more than 90 deg of flexion and abduction and no more than 20 deg external rotation. She is able to reach these degrees of motion passively and pain free. She has continued to wear her abduction sling at all times and goes back to the doctor on Sunday. She does demonstrate further impaired elbow ext ROM likely due to bicep tightness from positioning in elbow flexion in abduction brace. She will benefit from continued skilled PT intervention per protocol to improve ROM and strength to return to normal functional activities without difficulty. Plan of Care Interventions Electrical Stimulation,Hot Pack/Cold Pack,Manual Therapy,Neuro Re-education,Patient/Caregiver Education,Therapeutic Activities,Therapeutic Exercise PT Services Indicated Yes Treatment Frequency and 3x/week for 12 additional visits Duration These treatments will address the objective and functional deficits as defined above. The patient will be advanced safely and appropriately in order for the patient to progress towards his/her prior level of function. Additional exercises will be introduced and as well as a comprehensive home exercise program upon discharge, if needed, ?to ensure carryover of functional gains achieved in the clinic. This treatment plan has been reviewed and agreement upon by the patient.
--- NOTE | 2025-03-18 14:51 | OPREHPOC ---
Outpatient Therapy Plan of Care This is a Multidisciplinary Plan of Care that may contain components documented by all disciplines (PT, OT, and ST.) PT Problem 1 PT Problem #1 Knowledge Deficit PT Goal 1 Goal / Goal Update independent and compliant with HEP Target Visit 6 Progress Met PT Problem 2 PT Problem #2 Pain PT Goal 1 Goal / Goal Update maintain pain free rom and use of the R UE throughout treatment/rehab. Target Visit 12 Progress Met PT Problem 3 PT Problem #3 Impaired Range of Motion PT Goal 1 Goal / Goal Update 90 degrees passive R shoulder abd 20 degrees passive R shoulder ER Target Visit 4 Progress Met PT Goal 2 Goal / Goal Update 140 degrees active R shoulder flex 65 degrees active R shoulder IR 75 degrees active R shoulder ER 120 degrees active R shoulder abd Target Visit 22 Progress Not Met PT Problem 4 PT Problem #4 Impaired Strength PT Goal 1 Goal / Goal Update 4/5 or better R shoulder flex and abd -met 4+/5 or better R shoulder ER and IR -met IR, not met ER Target Visit 22 Progress Partially Met PT Problem 5 PT Problem #5 Impaired Functional Mobility PT Goal 1 Goal / Goal Update quick dash to display 20% or less functional deficits -met patient to reach behind head to the cervical spine with the R UE -met patient to reach behind back to the lumbar spine with the R UE -not met patient to lift 2lb weight to overhead level shelf with the R UE -not met Target Visit 22 Progress Partially Met
--- NOTE | 2025-03-18 14:51 | PTOPPROG ---
Assessment and note entered by Letha Rockwell, PT Evaluation Information Assessment Status Progress ICD-10 Condition Codes (PT) Encounter for other orthopedic aftercare Z47.89, Aftercare following joint replacement surgery Z47. 1 Onset 12/25/24 Subjective Information Pt presents for her nd skilled PT visit. She continues to be pain-free and is diligent with her home exercises. Per her doctor she is to continued skilled PT treatment per PT's discretion to regain full active ROM and strength. Assessment PT Clinical Summary Mrs. Tavera presents for her nd skilled PT visit following R TSA after fracture from a fall on 12/21. She demonstrates improved R shoulder AROM and strength but still demonstrates deficits in these areas that inhibit full functional use of the arm . She will benefit from continued skilled PT intervention to continue progressing toward goals to improve pt's ability to perform daily household tasks with less difficulty. Plan of Care Interventions Electrical Stimulation,Hot Pack/Cold Pack,Manual Therapy,Neuro Re-education,Patient/Caregiver Education,Therapeutic Activities,Therapeutic Exercise PT Services Indicated Yes Treatment Frequency and 2x/week for 8 additional visits Duration These treatments will address the objective and functional deficits as defined above. The patient will be advanced safely and appropriately in order for the patient to progress towards his/her prior level of function. Additional exercises will be introduced and as well as a comprehensive home exercise program upon discharge, if needed, ?to ensure carryover of functional gains achieved in the clinic. This treatment plan has been reviewed and agreement upon by the patient.
--- NOTE | 2025-04-08 14:23 | OPREHPOC ---
Outpatient Therapy Plan of Care This is a Multidisciplinary Plan of Care that may contain components documented by all disciplines (PT, OT, and ST.) PT Problem 1 PT Problem #1 Knowledge Deficit PT Goal 1 Goal / Goal Update independent and compliant with HEP Target Visit 6 Progress Met PT Problem 2 PT Problem #2 Pain PT Goal 1 Goal / Goal Update maintain pain free rom and use of the R UE throughout treatment/rehab. Target Visit 12 Progress Met PT Problem 3 PT Problem #3 Impaired Range of Motion PT Goal 1 Goal / Goal Update 90 degrees passive R shoulder abd 20 degrees passive R shoulder ER Target Visit 4 Progress Met PT Goal 2 Goal / Goal Update 140 degrees active R shoulder flex -met 65 degrees active R shoulder IR -met 75 degrees active R shoulder ER -not met 120 degrees active R shoulder abd -met Target Visit 22 Progress Partially Met PT Problem 4 PT Problem #4 Impaired Strength PT Goal 1 Goal / Goal Update 4/5 or better R shoulder flex and abd -met 4+/5 or better R shoulder ER and IR -met Target Visit 22 Progress Met PT Problem 5 PT Problem #5 Impaired Functional Mobility PT Goal 1 Goal / Goal Update quick dash to display 20% or less functional deficits -met patient to reach behind head to the cervical spine with the R UE -met patient to reach behind back to the lumbar spine with the R UE -met patient to lift 2lb weight to overhead level shelf with the R UE -met Target Visit 22 Progress Met
--- NOTE | 2025-04-08 14:23 | PTOPDC ---
Assessment and note entered by Thu Barraza, PT Evaluation Information Assessment Status Discharge ICD-10 Condition Codes (PT) Encounter for other orthopedic aftercare Z47.89, Aftercare following joint replacement surgery Z47. 1 Onset 12/25/24 Subjective Information Pt reports her right shoulder is doing well. She is not having pain and she has been able to return to all her previous activity levels without difficulty. She has been dressing, bathing, and grooming without difficulty. She is getting into overhead cabinets as well without trouble. Reported Pain Level Pain Score 0: Self Report Assessment PT Clinical Summary Niya Tavera has completed 28 skilled PT visit following R TSA after fracture from a fall on 12/21. 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 She objectively demonstrates improved R shoulder AROM and strength to functional levels. She has met all goals and will be discharged to an independent [facility]. Plan of Care PT Services Indicated No
== END 2025-04-13 23:59 | disposition home or self-care (01) ==
LOC: CHSPT 14:21
PROVIDERS: Visit Provider Orthopaedic Surgery
DX: Z47.1 Aftercare following joint replacement surgery (principal); Z48.89 Encounter for other specified surgical aftercare; Z96.611 Presence of right artificial shoulder joint
CPT/HCPCS: 97014; 97110; 97112; 97161; 97530; 97750; G0283

== ENCOUNTER 2025-04-16 08:44 | Outpatient (CLI) | payer MEDICARE, SELFPAY ==
--- OUTSIDE RECORDS SUMMARY | 2025-04-16 08:50 | XMS_ITS | Clinical Summary ---
Author Organization [facility] [employer] Address [address] [place] [address] Care Team Providers Care Prevention Coordinator Name Role Phone Layla Christensen APRN-SHANK PAPERER Primary Care Provid er Source Comments [facility] [employer],non-owned Affiliates and Associated Physician Practices is amultiple site organization consisting of ambulatory clinics and hospital sitesin [place], [place], [place] and [place]. This disclosure is being madepursuant to the Care Everywhere program and may not contain all information available regarding this patient. Last updated 18.[facility] [employer] Allergies Active Allergy Reactions Criticality Noted Date Comments Tree Nuts Angioedema High 12/13/2023 Black walnuts Medications * Be aware that medications may not be up to date on this document. Alwaysverify current medications with the patient. aspirin (Aspirin) 81 MG chew tablet Take 1 (one) tablet by mouth once daily Active multivitamin daily tablet Take 1 (one) tablet by mouth daily with food Active atorvastatin (Lipitor) 40 MG tablet Take 1 (one) tablet by mouth at bedtime 30 tablet 12/15/2023 Active metoprolol tartrate IR 37.5 MG TABSIndications :Atrial Fibrillation,At rial Flutter Take 37.5 mg by mouth 2 times daily Reasons: Atrial Fibrillation , Atrial Flutter 60 tablet 12/15/2023 Active apixaban (Eliquis) 5 MG tablet Take 1 (one) tablet by mouth 2 times daily 60 tablet 12/15/2023 Active Active Problems Problem Noted Date Diagnosed Date TIA (transient ischemic attack) 12/12/2023 Social History Tobacco Use Types Packs/Day Years Used Date Smoking Tobacco: Never Assessed PHQ-2 Answer Date Recorded Patient Health Questionnaire-2 Score 0 12/14/2023 Comments Unknown Sex and Gender Information Value Date Recorded Sex Assigned at Not on file Legal Sex Female 3:15 PM CDT Gender Identity Not on file [...] - 1-dose 75+ series) 2010 COVID-19 VACCINE (2023-2 5 season) 2024 08/24/2021, 11/26/2020, 10/29/2020 DEPRESSION SCREENING 10/01/2024 12/12/2023 INFLUENZA VACCINE (#1) 2025 HEPATITIS B VACCINE Aged Out No longe [...] on patient's age to complete this topic Insurance MEDICARE MEDICARE COMMERCIAL GENERIC MEDICARE Advance Directives Documents on File Type Date Recorded 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
[2025-04-16 09:07] LABS: Hematocrit 33.3 % (35.0-42.0); Hemoglobin 10.1 g/dL (11.7-13.8); Immature Granulocyte Percent A 0.3 % (0.0-0.0); Lymphocytes Absolute Auto 2.09 K/mm3 (1.10-4.50); Mean Corpuscular HGB Conc 30.3 g/dL (32-36); Mean Corpuscular Hemoglobin 23.7 pg (27.0-31.0); Mean Corpuscular Volume 78.0 fL (78.0-102.0); Nucleated Red Blood Cells Absolute Auto 0.00 K/mm3 (0.00-0.00); Nucleated Red Blood Cells Perc 0.0 % (0-0.0); Platelet Count Result 297 K/mm3 (150-420); Red Blood Count 4.27 M/mm3 (4.20-5.40); White Blood Count 6.7 K/mm3 (4.8-10.8)
[2025-04-16 09:29] LABS: Alanine Aminotransferase 16 U/L (6-35); Albumin Level 4.3 g/dL (3.5-5.1); Alkaline Phosphatase 78 U/L (38-126); Anion Gap 8 mmol/L (4-12); Aspartate Amino Transferase 28 U/L (14-36); Bilirubin,Total 0.6 mg/dL (0.2-1.3); Blood Urea Nitrogen 17 mg/dL (7-17); Calcium 9.3 mg/dL (8.4-10.2); Carbon Dioxide 22 mmol/L (22-30); Chloride 110 mmol/L (98-107); Estimated Glomerular Filt Rate 57; Glucose 138 mg/dL (65-110); Osmolality Calculated 293 mOsm/kg (285-295); Potassium 3.6 mmol/L (3.4-5.0); Sodium 140 mmol/L (137-145); Total Protein 6.8 g/dL (6.3-8.2)
== END 2025-04-16 08:45 | disposition home or self-care (01) ==
PROVIDERS: PCP Nurse Practitioner Family; Visit Provider Internal Medicine Cardiovascular Disease
DX: I25.10 Atherosclerotic heart disease of native coronary artery without angina pectoris (principal)
CPT/HCPCS: 36415; 80053; 85025